=== PATIENT | male | born 1960 | race Caucasian/White ===

== ENCOUNTER 2020-05-19 12:44 | Emergency (ER) | payer OTHER ==
[~2020-05-19] VITALS: Ht 193 cm; Wt 184.1 kg
[2020-05-19] MEDS ORDERED: BACITO TOP (12:55)
[2020-05-19] MEDS ORDERED: Vitamin D2000 UNIT (12:56)
[2020-05-19] MEDS ORDERED: BUPR150ER PO (12:56)
[2020-05-19] MEDS ORDERED: DIVA500ER (12:56)
[2020-05-19] MEDS ORDERED: FINA5 PO (12:57)
[2020-05-19] MEDS ORDERED: Prozac20 MG PO (12:57)
[2020-05-19] MEDS ORDERED: FLUT.05NI (12:58)
[2020-05-19] MEDS ORDERED: BASAGLAR K100 UNIT/1 (12:58)
[2020-05-19] MEDS ORDERED: LISI20 PO (12:59)
[2020-05-19] MEDS ORDERED: HUMALOG JU100 UNIT/2 SQ (12:59)
[2020-05-19] MEDS ORDERED: MAGNESIUM OXID500 MG (12:59)
[2020-05-19 13:40] LABS: BASOPHILS ABSOLUTE AUTO 0.07 K/mm3 (0.00-0.23); BASOPHILS PERCENT AUTO 1 % (0-2); EOSINOPHILS ABSOLUTE AUTO 0.16 K/mm3 (0.00-0.68); EOSINOPHILS PERCENT AUTO 2 % (0-6); Hemoglobin 15.5 g/dL (13.5-17.5); IMMATURE GRAN ABSOLUTE AUTO 0.08 K/mm3 (0.00-0.10); IMMATURE GRAN PERCENT AUTO 1 % (0-1); LYMPHOCYTES ABSOLUTE AUTO 1.82 K/mm3 (0.84-5.20); LYMPHOCYTES PERCENT AUTO 22 % (21-46); MONOCYTES ABSOLUTE AUTO 0.78 K/mm3 (0.16-1.47); MONOCYTES PERCENT AUTO 10 % (4-13); Mean Corpuscular HGB 29.5 pg (26.0-34.0); Mean Corpuscular Volume 90 fL (80-100); Mean Platelet Volume 10.7 fL (9.1-12.4); NEUTROPHILS ABSOLUTE AUTO 5.32 K/mm3 (1.96-9.15); NEUTROPHILS PERCENT AUTO 65 % (41-73); Platelet Count 196 K/mm3 (150-400); RDW Coefficient Variation 12.8 % (11.7-14.2); RDW Standard Deviation 42.1 fL (35.1-46.3); Red Blood Cell Count 5.25 M/mm3 (4.30-5.90); White Blood Cell Count 8.23 K/mm3 (4.00-11.30)
[2020-05-19 14:21] LABS: Alanine Aminotransfer (ALT/SGP 30 U/L (12-78); Albumin, Blood 3.2 g/dL (3.4-5.0); Albumin/Globulin Ratio 0.7 (0.8-1.8); Alk Phos 71 U/L (50-136); Anion Gap 8 mmol/L (6-16); Aspartate Aminotrans (AST/SGOT 12 U/L (12-37); Bilirubin, Total 0.5 mg/dL (0.1-1.0); Blood Urea Nitrogen 17 mg/dL (8-24); Bun/Creatinine Ratio 18.6 (12.0-20.0); CO2, Blood 21 mmol/L (21-32); Calcium, Blood 8.4 mg/dL (8.5-10.1); Chloride, Blood 103 mmol/L (98-108); Creatinine, Blood 0.91 mg/dL (0.60-1.20); Globulin, Blood 4.4 g/dL (2.2-4.0); Glomerular Filtration Rate >60 (60-); Glucose, Blood 296 mg/dL (70-99); Potassium, Blood 3.8 mmol/L (3.5-5.5); Sodium, Blood 132 mmol/L (136-145); Total Protein, Blood 7.6 g/dL (6.4-8.2)
[2020-05-19] MEDS ORDERED: MINO50 PO (14:49)
== END 2020-05-19 15:30 | disposition home or self-care (01) ==
LOC: ER 12:44
PROVIDERS: Emergency Medicine
DX: L03.116 Cellulitis of left lower limb (principal); Z88.0 Allergy status to penicillin; Z88.8 Allergy status to other drugs, medicaments and biological substances; Z79.899 Other long term (current) drug therapy; E11.9 Type 2 diabetes mellitus without complications; Z79.4 Long term (current) use of insulin; Z23 Encounter for immunization
CPT/HCPCS: 80053; 85025; 87070; 87077; 87147; 87186; 87205; 90471; 90714; 93971; 99284-25

== ENCOUNTER 2020-08-09 22:28 | Observation (INO) | payer OTHER ==
[~2020-08-09] VITALS: Ht 193 cm; Wt 179.4 kg
[~2020-08-09 22:28] MED LIST: ACET325 PO; ALBU90OI INH; BACITO TOP; BASAGLAR K100 UNIT/1 SC; BUPR150ER PO; DIVA500ER; FINA5 PO; FLUT.05NI; HUMALOG JU100 UNIT/2 SC; LEVOFLOXACIN750 MG PO; LISI20 PO; MAGNESIUM OXID500 MG; METPHE10 PO; METPHE5 PO; MINO50 PO; Prozac20 MG PO; Vitamin D2000 UNIT
[2020-08-09 23:22] LABS: Source, Urine Clean Catch
[2020-08-09 23:28] LABS: Appearance, Urine Clear (Clear); Bilirubin, Urine Neg (Neg); Blood, Urine 3+ (Neg); Color, Urine Yellow (P-Yellow); Glucose Qualitative, Urine 4+ (Neg); Ketones, Urine 2+ (Neg); Leukocyte Esterase, Urine Neg (Neg); Nitrite, Urine Neg (Neg); Protein, Urine 2+ (Neg); Urobilinogen, Urine NORM (Normal)
[2020-08-09 23:37] LABS: Bacteria Rare /hpf; Squamous Epithelial Cells Rare /hpf (Few); White Blood Cells, Urine 0-2 /hpf (0-5)
[2020-08-09 23:57] LABS: BASOPHILS ABSOLUTE AUTO 0.08 K/mm3 (0.00-0.23); BASOPHILS PERCENT AUTO 1 % (0-2); EOSINOPHILS ABSOLUTE AUTO 0.15 K/mm3 (0.00-0.68); EOSINOPHILS PERCENT AUTO 2 % (0-6); Hematocrit 46.1 % (37.0-53.0); Hemoglobin 15.6 g/dL (13.5-17.5); IMMATURE GRAN ABSOLUTE AUTO 0.14 K/mm3 (0.00-0.10); IMMATURE GRAN PERCENT AUTO 1 % (0-1); LYMPHOCYTES ABSOLUTE AUTO 1.56 K/mm3 (0.84-5.20); LYMPHOCYTES PERCENT AUTO 16 % (21-46); MONOCYTES ABSOLUTE AUTO 0.69 K/mm3 (0.16-1.47); MONOCYTES PERCENT AUTO 7 % (4-13); Mean Corpuscular HGB 30.4 pg (26.0-34.0); Mean Corpuscular HGB Conc 33.8 g/dL (31.5-36.5); Mean Corpuscular Volume 90 fL (80-100); Mean Platelet Volume 10.2 fL (9.1-12.4); NEUTROPHILS ABSOLUTE AUTO 7.37 K/mm3 (1.96-9.15); NEUTROPHILS PERCENT AUTO 74 % (41-73); Platelet Count 235 K/mm3 (150-400); RDW Coefficient Variation 13.2 % (11.7-14.2); RDW Standard Deviation 44.2 fL (35.1-46.3); Red Blood Cell Count 5.14 M/mm3 (4.30-5.90); White Blood Cell Count 9.99 K/mm3 (4.00-11.30)
[2020-08-09 23:58] LABS: Base Excess Venous -2.3 mmol/L; PCO2 Venous 35.2 mmHg (38-42); PO2 Venous 121 mmHg (38-42); pH Blood Venous 7.41 (7.34-7.37)
[2020-08-10 00:28] LABS: Alanine Aminotransfer (ALT/SGP 29 U/L (12-78); Albumin, Blood 3.1 g/dL (3.4-5.0); Albumin/Globulin Ratio 0.7 (0.8-1.8); Alk Phos 80 U/L (50-136); Anion Gap 6 mmol/L (6-16); Aspartate Aminotrans (AST/SGOT 18 U/L (12-37); Beta-hydroxybutyrate 8.5 mg/dL (0.2-2.8); Bilirubin, Total 0.4 mg/dL (0.1-1.0); Blood Urea Nitrogen 13 mg/dL (8-24); Bun/Creatinine Ratio 15.7 (12.0-20.0); CO2, Blood 23 mmol/L (21-32); Calcium, Blood 8.8 mg/dL (8.5-10.1); Chloride, Blood 104 mmol/L (98-108); Creatinine, Blood 0.83 mg/dL (0.60-1.20); Globulin, Blood 4.5 g/dL (2.2-4.0); Glomerular Filtration Rate >60 (60-); Glucose, Blood 501 mg/dL (70-99); Potassium, Blood 4.7 mmol/L (3.5-5.5); Sodium, Blood 133 mmol/L (136-145); Total Protein, Blood 7.6 g/dL (6.4-8.2); Troponin I 0.106 ng/mL (0.000-0.040)
[2020-08-10 04:20] LABS: BASOPHILS ABSOLUTE AUTO 0.07 K/mm3 (0.00-0.23); BASOPHILS PERCENT AUTO 1 % (0-2); EOSINOPHILS PERCENT AUTO 1 % (0-6); Hematocrit 44.9 % (37.0-53.0); Hemoglobin 15.2 g/dL (13.5-17.5); IMMATURE GRAN ABSOLUTE AUTO 0.15 K/mm3 (0.00-0.10); IMMATURE GRAN PERCENT AUTO 2 % (0-1); LYMPHOCYTES ABSOLUTE AUTO 1.97 K/mm3 (0.84-5.20); LYMPHOCYTES PERCENT AUTO 21 % (21-46); MONOCYTES ABSOLUTE AUTO 0.79 K/mm3 (0.16-1.47); MONOCYTES PERCENT AUTO 8 % (4-13); Mean Corpuscular HGB 30.6 pg (26.0-34.0); Mean Corpuscular HGB Conc 33.9 g/dL (31.5-36.5); Mean Corpuscular Volume 90 fL (80-100); Mean Platelet Volume 10.1 fL (9.1-12.4); NEUTROPHILS ABSOLUTE AUTO 6.52 K/mm3 (1.96-9.15); NEUTROPHILS PERCENT AUTO 68 % (41-73); Platelet Count 233 K/mm3 (150-400); RDW Coefficient Variation 13.4 % (11.7-14.2); RDW Standard Deviation 44.8 fL (35.1-46.3); Red Blood Cell Count 4.97 M/mm3 (4.30-5.90)
[2020-08-10 04:53] LABS: Alanine Aminotransfer (ALT/SGP 23 U/L (12-78); Albumin, Blood 3.1 g/dL (3.4-5.0); Albumin/Globulin Ratio 0.7 (0.8-1.8); Alk Phos 71 U/L (50-136); Anion Gap 6 mmol/L (6-16); Aspartate Aminotrans (AST/SGOT 12 U/L (12-37); Bilirubin, Total 0.5 mg/dL (0.1-1.0); Blood Urea Nitrogen 13 mg/dL (8-24); Bun/Creatinine Ratio 16.6 (12.0-20.0); CO2, Blood 23 mmol/L (21-32); Calcium, Blood 8.6 mg/dL (8.5-10.1); Chloride, Blood 107 mmol/L (98-108); Creatinine, Blood 0.79 mg/dL (0.60-1.20); Globulin, Blood 4.4 g/dL (2.2-4.0); Glomerular Filtration Rate >60 (60-); Glucose, Blood 345 mg/dL (70-99); Sodium, Blood 136 mmol/L (136-145); Total Protein, Blood 7.5 g/dL (6.4-8.2)
--- NOTE | 2020-08-10 05:43 | NUR ---
SUMMARY PT ARRIVED TO PCU AT 0309. HE TRANSFERS INDEPENDENTLY TO THE BED AND TO THE BATHROOM. NO COMPLAINTS OF CP OR ANY OTHER PAIN, AND STATES HE HAS NO LOSS OF SENSATIION IN HIS LEGS ANYMORE. IN TO SEE PATIENT. HE IS ON 3L 02 AND MAINTIAING SATS IN THE MID 90s. PT TO RECIEVE CPAP. PATIENT HAS CALL LIGHT IN REACH AND BED IN LOW POSITION.
--- NOTE | 2020-08-10 08:40 | NUR ---
DR. JOE AT BEDSIDE. DISCUSSED POC. PLAN IS FOR HEART CATH TODAY. NPO. SHE WILL PUT IN ORDERS FOR HEPARIN. HOLD LOVENOX. STATES OK TO GIVE LOPRESSOR ORDERED.
--- NOTE | 2020-08-10 08:50 | NUR ---
PATIENT DOWN TO IMAGING.
[2020-08-10 09:14] LABS: Troponin I 0.161 ng/mL (0.000-0.040)
[2020-08-10 09:21] LABS: CHOL/HDL RATIO 5.7; Cholesterol 223 mg/dL (50-200); HDL Cholesterol 39 mg/dL (>39); LDL/HDL RATIO 4.1; Low Density Lipoprotein Chol 159 mg/dL (0-110); Triglycerides 124 mg/dL (30-160); Very Low Density Lipoprot Chol 24 mg/dL (6-32)
[2020-08-10 10:07] LABS: U Amphetamine Screen Not Detected; U Barbituate Screen Not Detected; U Benzodiazapine Screen Not Detected; U Buprenorphine Screen Not Detected; U Cannabinoids Screen Not Detected; U Cocaine Screen Not Detected; U Methadone Screen Not Detected; U Methamphetamine Screen Not Detected; U Opiates Screen Not Detected; U Oxycodone Screen Not Detected; U Phencyclidine Screen Not Detected; U Propoxyphene Screen Not Detected
[2020-08-10 10:08] LABS: International Normalized Ratio 0.99; Prothrombin Time Results 10.6 Sec (9.7-11.5)
--- NOTE | 2020-08-10 10:44 | NUR ---
Echocardiogram completed.
--- NOTE | 2020-08-10 11:04 | NUR ---
PATIENT DOWN TO STRIKE OFF MACHINE OPERATOR.
--- NOTE | 2020-08-10 12:31 | NUR ---
Call from Denisa Euceda, that pt's procedure incompleted due to STEMI in ED. Returning from medical lab scientist at this time, keep NPO and left radial access will be attempted later as right radial access unsuccessful this morning, per verbal report.
--- NOTE | 2020-08-10 12:44 | NUR ---
PATIENT RETURNED TO ROOM FROM PULVERIZER TENDER. THEY WERE UNABLE TO COMPLETE PROCEDURE AT THIS TIME. WILL RETURN TO FINISH PROCEDURE. PATIENT WILL CONTINUE TO BE NPO. BONIFACIO OCHOA RN RECEIVED ORDERS FROM DR. SAMANO TO CHECK PTT AND THEN HE WILL DECIDE WHETHER OR NOT TO CONTINUE WITH HEPARIN DRIP. TR BAND TO R WRIST WITH ARMBOARD IN PLACE. PATIENT DENIES NUMBNESS, TINGLING, AND PAIN TO SITE. PULSE 2+. GOOD PLETH. NO BRUISING OR SWELLING NOTED. WILL CONTINUE TO MONITOR.
--- NOTE | 2020-08-10 13:50 | NUR ---
CALLED ANNE IN PHARMACY. NOTIFIED HIM PATIENT HAD BEEN OFF HEPARIN DRIP FOR HEART CATH BUT THEY WERE UNABLE TO COMPLETE CATH. PATIENT'S APTT DRAWN AT 1253 WAS 47.7. ANNE STATED TO RESTART HEPARIN DRIP AT 13 U/KG/HR OR 32.2 ML/HR, NO NEED FOR BOLUS AT THIS TIME.
--- NOTE | 2020-08-10 15:15 | NUR ---
TR band fully deflated at this time. Right radial arterial access site without bleeding, bruising, swelling, nor evidence of hematoma. Distal pulse palpable, and fingers are pink, warm, with brisk cap refill. Pt denies any discomfort of right hand or arm, dyspnea, nor chest discomfort.
[2020-08-10 15:35] LABS: Troponin I 0.132 ng/mL (0.000-0.040)
--- NOTE | 2020-08-10 15:45 | NUR ---
AT 1527 PATIENT HAD A 7 BEAT RUN OF VTACH. WAS ASYMPTOMATIC, DENIED CHEST PAIN. CALLED DR. ALEGRIA TO NOTIFY HER. ALSO NOTIFIED HER OF PATIENT'S ELEVATED BP. STATES SHE WOULD PUT IN ORDERS FOR METOPROLOL TARTRATE 50 MG PO X1 NOW AND THEN WOULD INCREASE HIS SCHEDULED DOSE TO 50 MG. STATES PATIENT MAY GO TO [facility] TODAY BUT MAYBE GO TOMORROW, CONTINUE HEPARIN DRIP AND NPO FOR NOW.
--- NOTE | 2020-08-10 16:41 | NUR ---
TR band was removed, area cleansed with chlorohexidine, dried with gauze, and sterile clear tegederm applied to the area. Remains unchanged from previous assessment. Pt states he is very hungry as he hasn't eaten since yesterday evening. Called heart center to find out if and when the pt might go for the angiogram today.
--- NOTE | 2020-08-10 17:20 | NUR ---
PATIENT DOWN TO HEART CENTER.
--- NOTE | 2020-08-10 17:29 | NUR ---
Abhishek from [employer] here to take pt for angiogram. Pt walked to bathroom to void, then to bed for transport. Right radial site remains clear, white immobilizer board in place, before and after pt's use of bathroom.
--- NOTE | 2020-08-10 18:21 | NUR ---
SHIFT SUMMARY: PATIENT A/OX3. HAS DENIED PAIN THROUGHOUT THE SHIFT. ON ROOM AIR. CPAP SET UP FOR SLEEP. TELE SHOWS SINUS TACH. HAD 7 BEAT RUN OF VTACH, DENIED CHEST PAIN AND SOB. ELEVATED BP. ONE TIME DOSE OF LOPRESSOR GIVEN. DOWN TO HEART CENTER AND THEN THEY HAD TO STOP THE PROCEDURE. TR BAND REMOVED WITH NO S/S BLEEDING. NPO THROUGHOUT DAY PENDING ANOTHER PROCEDURE. DOWN TO HEART CENTER AGAIN AT THIS TIME. WILL CONTINUE TO MONITOR AND REPORT TO ONCOMING RN.
--- NOTE | 2020-08-10 18:45 | NUR ---
PATIENT TO ROOM FROM HEART CENTER. DENIES PAIN. ARMBOARD IN PLACE TO R WRIST AND L WRIST. TR BAND IN PLACE TO L WRIST WITH 12 CCS IN BAND PER REPORT. PATIENT DENIES PAIN, NUMBNESS, AND TINGLING AT SITE. GOOD CAP REFILL 2+. STRONG PULSE. PATIENT VERBALIZED UNDERSTANDING OF ARM RESTRICTIONS. FOOD GIVEN TO PATIENT. BP TAKEN ON PATIENT'S R LEG. CALL LIGHT IN REACH.
--- NOTE | 2020-08-11 01:02 | NUR ---
SUMMARY PT WENT FOR ANGIOGRAPHY EARLIER ON 08/10/20, HE HAD A RIGHT AND A LEFT RADIAL ACCESS SITE BECAUSE THE RIGHT DID NOT WORK, SO THEY ACCESSED THE LEFT RADIAL SITE. THE TR BAND WAS ALREADY REMOVED ON THE RIGHT RADIAL, BANDAGE STAYED INTACT AND NO BLEEDING PRESENT. THE LEFT RADIAL SITE HAD TR BAND IN PLACE WITH 12 CC OF AIR. STARTED REMOVING AIR AT 08/10, AND FINISHED REMOVING AIR AT 2345. NO BLEEDING PRESENT AND TR BAND LEFT IN PLACE FOR PATIENTS TRANSPORT TO [facility]. PT LEFT WITH BOTH WRIST SPLINTS IN PLACE ON HIS RIGHT AND LEFT WRIST. PT WAS FRUSTRATED DUE TO THE EVENTS OF THE DAY AND LACK OF SLEEP AND REFUSED HIS BLOOD PRESSURE BEING TAKEN BECAUSE IT WAS PAINFUL ON HIS RIGHT LEG. WE SWITCHED FROM THE MACHINE TO A MANUAL BLOOD PRESSURE AFTER TALKING TO THE PATIENT AND HE REPOTED MANUAL BP WAS LESS PAINFUL AND HE COULD TOLERATE IT. HE GOT UP TO USE THE RESTROOM UNSUPERVISED AT ONE POINT FORGETTING ABOUT THE IV IN HIS LEFT ARM THAT WAS INFUSING HEPARIN AND PULLED THE IV OUT. NEW IV PLACED IN HIS RIGHT WRIST BY BLANE HCRISTIE RN. PT WORE CPAP WHEN SLEEPING, VSS, NO COMPLAINTS OF CP. PT LEFT AROUND 0000 FOR [facility] AND REPORT WAS CALLED TO NISREEN THOMSON.
== END 2020-08-11 | disposition short-term general hospital (02) ==
LOC: ER 22:28 → PCU 22:30 → ER 08-10 01:40 → PCU 08-10 01:40
PROVIDERS: Internal Medicine Cardiovascular Disease; Pharmacist; Physician Assistant; ADMIT Internal Medicine
DX: I21.4 Non-ST elevation (NSTEMI) myocardial infarction (principal); I25.10 Atherosclerotic heart disease of native coronary artery without angina pectoris; T82.855A Stenosis of coronary artery stent, initial encounter; Y83.1 Surgical operation with implant of artificial internal device as the cause of abnormal reaction of the patient, or of later complication, without mention of misadventure at the time of the procedure; I51.3 Intracardiac thrombosis, not elsewhere classified; E78.00 Pure hypercholesterolemia, unspecified; E78.5 Hyperlipidemia, unspecified; E66.01 Morbid (severe) obesity due to excess calories; G47.33 Obstructive sleep apnea (adult) (pediatric); E86.0 Dehydration; E11.65 Type 2 diabetes mellitus with hyperglycemia; Z20.828 Contact with and (suspected) exposure to other viral communicable diseases; Z88.1 Allergy status to other antibiotic agents; Z87.891 Personal history of nicotine dependence; Z79.4 Long term (current) use of insulin; Z79.899 Other long term (current) drug therapy; Z88.0 Allergy status to penicillin; Z86.73 Personal history of transient ischemic attack (TIA), and cerebral infarction without residual deficits; J18.9 Pneumonia, unspecified organism; I11.9 Hypertensive heart disease without heart failure; Z68.42 Body mass index [BMI] 45.0-49.9, adult
CPT/HCPCS: 36415; 70450; 71046; 71260; 76937; 80053; 80061; 81001; 82010; 82550; 82803; 82947; 83605; 83880; 84484; 85025; 85347; 85610; 85730; 93005; 93010; 93454; 94660; 94762; 96374; 96376; 99152; 99153; 99285-25; A9270-GY; C1769; C1894; C8929; G0378; J1644; J1815; J2250; J3010; J7030; J7040; J7050; Q9957; Q9967; U0003

== ENCOUNTER 2020-09-30 06:58 | Emergency (ER) | payer OTHER ==
[~2020-09-30] VITALS: Ht 193 cm; Wt 172.4 kg
== END 2020-09-30 10:49 | disposition home or self-care (01) ==
LOC: ER 06:58
DX: F41.9 Anxiety disorder, unspecified (principal); Z88.0 Allergy status to penicillin; Z88.1 Allergy status to other antibiotic agents; Z79.899 Other long term (current) drug therapy
CPT/HCPCS: 99285

== ENCOUNTER 2020-11-22 00:41 | Inpatient (IN) | payer OTHER ==
[~2020-11-22] VITALS: Ht 193 cm; Wt 162.9 kg
[~2020-11-22 00:41] MED LIST changes: -DIVA500ER; +DIVA500ER PO
[2020-11-22 01:10] LABS: BASOPHILS ABSOLUTE AUTO 0.06 K/mm3 (0.00-0.23); BASOPHILS PERCENT AUTO 1 % (0-2); EOSINOPHILS ABSOLUTE AUTO 0.06 K/mm3 (0.00-0.68); EOSINOPHILS PERCENT AUTO 1 % (0-6); Hematocrit 47.4 % (37.0-53.0); Hemoglobin 15.5 g/dL (13.5-17.5); IMMATURE GRAN ABSOLUTE AUTO 0.05 K/mm3 (0.00-0.10); IMMATURE GRAN PERCENT AUTO 0 % (0-1); LYMPHOCYTES ABSOLUTE AUTO 1.45 K/mm3 (0.84-5.20); LYMPHOCYTES PERCENT AUTO 12 % (21-46); MONOCYTES ABSOLUTE AUTO 0.68 K/mm3 (0.16-1.47); MONOCYTES PERCENT AUTO 6 % (4-13); Mean Corpuscular HGB 28.9 pg (26.0-34.0); Mean Corpuscular HGB Conc 32.7 g/dL (31.5-36.5); Mean Corpuscular Volume 88 fL (80-100); Mean Platelet Volume 10.7 fL (9.1-12.4); NEUTROPHILS ABSOLUTE AUTO 9.81 K/mm3 (1.96-9.15); NEUTROPHILS PERCENT AUTO 81 % (41-73); Platelet Count 256 K/mm3 (150-400); RDW Coefficient Variation 12.7 % (11.7-14.2); RDW Standard Deviation 41.3 fL (35.1-46.3); Red Blood Cell Count 5.36 M/mm3 (4.30-5.90); White Blood Cell Count 12.11 K/mm3 (4.00-11.30)
[2020-11-22 01:20] LABS: Calcium, Ionized (POC) 1.09 mmol/L (1.10-1.46); Chloride (POC) 104 mmol/L (98-108); Creatinine (POC) 0.8 mg/dL (0.8-1.3); Glucose (ISTAT POC) 194 mg/dL (70-99); Potassium (POC) 5.5 mmol/L (3.5-5.5); Sodium (POC) 136 mmol/L (135-148); Total CO2 (POC) 24 mmol/L (21-32)
[2020-11-22 01:26] LABS: Troponin I 0.044 ng/mL (0.000-0.040)
[2020-11-22 01:28] LABS: International Normalized Ratio 1.01; Prothrombin Time Results 10.8 Sec (9.7-11.5)
[2020-11-22 01:30] LABS: Alanine Aminotransfer (ALT/SGP 23 U/L (12-78); Albumin, Blood 3.6 g/dL (3.4-5.0); Albumin/Globulin Ratio 0.8 (0.8-1.8); Alk Phos 80 U/L (50-136); Anion Gap 8 mmol/L (6-16); Aspartate Aminotrans (AST/SGOT 41 U/L (12-37); Bilirubin, Total 0.5 mg/dL (0.1-1.0); Blood Urea Nitrogen 16 mg/dL (8-24); Bun/Creatinine Ratio 19.4 (12.0-20.0); CO2, Blood 23 mmol/L (21-32); Chloride, Blood 105 mmol/L (98-108); Creatinine, Blood 0.82 mg/dL (0.60-1.20); Globulin, Blood 4.8 g/dL (2.2-4.0); Glomerular Filtration Rate >60 (60-); Glucose, Blood 188 mg/dL (70-99); Potassium, Blood 5.1 mmol/L (3.5-5.5); Sodium, Blood 136 mmol/L (136-145); Total Protein, Blood 8.4 g/dL (6.4-8.2)
[2020-11-22 06:12] LABS: LDL/HDL RATIO 3.8; Very Low Density Lipoprot Chol 24 mg/dL (6-32)
[2020-11-22 06:15] LABS: CHOL/HDL RATIO 5.4; Cholesterol 226 mg/dL (50-200); HDL Cholesterol 42 mg/dL (>39); Low Density Lipoprotein Chol 160 mg/dL (0-110); Triglycerides 121 mg/dL (30-160)
--- NOTE | 2020-11-22 07:25 | NUR ---
ADMIT NOTE PATIENT PLEASENT AND COOPERATIVE UPON ADMIT FROM THE ER. PATIENT TRANSFERED SELF OVER WITH SBA. PATIENT DENIES ANY CHEST/ABD PAIN. RESPIRATIONS EVEN AND UNLABORED. PATIENT CURRENTLY RESTING IN BED, NO DISTRESS NOTED AT THIS TIME. DAY SHIFT RN'S IN ROOM UPON PATIENT ARRIVAL. REPORT GIVEN TO DAY SHIFT RN'S.
--- NOTE | 2020-11-22 08:21 | NUR ---
ECHO IN PROGRESS
--- NOTE | 2020-11-22 09:18 | NUR ---
DR LLANES CALLED TO CLARIFY NEW ORDERS TO START THIS AM, NEW ORDERS TO START DIET AND FEED PT. WILL CONTINUE TO MONITOR.
--- NOTE | 2020-11-22 11:01 | NUR ---
UPDATE: PT HAS REDDENED AREA/RASH UNDER LEFT BREAST, CLEANED WITH SOAP AND WATER. DR. BAZAN NOTIFIED, NEW ORDERS PLACED. WILL CONTINUE TO MONITOR.
--- NOTE | 2020-11-22 12:15 | NUR ---
PT REPORTING FRQUENCY AND URGENCYTO VOID WITH MINIMAL OUTPUT, BLADDERSCAN AT 21cc; PT CONTINUE TO REPORT THE URGE TO VOID; PT BECOMES DIAPHORETIC, COOL AND CLAMMY; NOTIFIED DR BAZAN, DR MARINO WELSH.
[2020-11-22 13:07] LABS: Bilirubin, Urine Neg (Neg); Blood, Urine 2+ (Neg); Glucose Qualitative, Urine 3+ (Neg); Ketones, Urine 1+ (Neg); Leukocyte Esterase, Urine Neg (Neg); Nitrite, Urine Neg (Neg); Protein, Urine 2+ (Neg); Specific Gravity, Urine 1.015 (1.003-1.022); Urobilinogen, Urine NORM (Normal)
[2020-11-22 14:08] LABS: Appearance, Urine Hazy (Clear); Color, Urine Yellow (P-Yellow)
[2020-11-22 14:11] LABS: Bacteria Few /hpf; Hyaline Casts 0-2 /lpf (0-2); Squamous Epithelial Cells Rare /hpf (Few); White Blood Cells, Urine 0-2 /hpf (0-5)
--- NOTE | 2020-11-22 18:23 | NUR ---
SHIFT SUMMARY: PATIENT IS ALERT AND ORIENTED X4. ON ROOM AIR. TELE SHOWING SINUS RHYTHM/SINUS TACH. HR AVERAGING 90'S. DENIES CHEST PAIN/PRESSURE. R UPPER ARM IV INFUSING HEPARIN. UP TO BEDSIDE COMMODE WITH 1 PERSON. PT COMPLAINING OF THE NEED TO URINATE CONSTANTLY. RECIEVED DEMADEX THIS AM AND HAS HAD GOOD OUTPUT. VITAL SIGNS STABLE WITH SOME ELVATED BLOOD PRESSURES. DR. LLANES IN TO SEE PATIENT THIS AM TO DISCUSS MED CHANGES, COMPLIANCE WITH MEDS AND THE NEED TO CONTROL BLOOD PRESSURE. WILL CONTINUE TO MONITOR AND REPORT OFF.
--- NOTE | 2020-11-22 18:54 | NUR ---
RECEIV[facility] MEDICATION L[facility]; UPDATED HOME MEDICATIONS. NOTIFIED DR BAZAN OF HOME MEDICATIONS; NEW ORDERS FOR UPDATED HOME MEDICATIONS.
[2020-11-23 04:00] LABS: BASOPHILS PERCENT AUTO 1 % (0-2); EOSINOPHILS ABSOLUTE AUTO 0.12 K/mm3 (0.00-0.68); EOSINOPHILS PERCENT AUTO 1 % (0-6); Hematocrit 47.8 % (37.0-53.0); Hemoglobin 15.7 g/dL (13.5-17.5); IMMATURE GRAN ABSOLUTE AUTO 0.04 K/mm3 (0.00-0.10); IMMATURE GRAN PERCENT AUTO 0 % (0-1); LYMPHOCYTES PERCENT AUTO 31 % (21-46); MONOCYTES ABSOLUTE AUTO 1.26 K/mm3 (0.16-1.47); MONOCYTES PERCENT AUTO 11 % (4-13); Mean Corpuscular HGB 29.6 pg (26.0-34.0); Mean Corpuscular HGB Conc 32.8 g/dL (31.5-36.5); Mean Corpuscular Volume 90 fL (80-100); Mean Platelet Volume 10.4 fL (9.1-12.4); NEUTROPHILS ABSOLUTE AUTO 6.56 K/mm3 (1.96-9.15); NEUTROPHILS PERCENT AUTO 56 % (41-73); Platelet Count 259 K/mm3 (150-400); RDW Coefficient Variation 13.1 % (11.7-14.2); RDW Standard Deviation 42.7 fL (35.1-46.3); Red Blood Cell Count 5.31 M/mm3 (4.30-5.90); White Blood Cell Count 11.78 K/mm3 (4.00-11.30)
[2020-11-23 04:20] LABS: Alanine Aminotransfer (ALT/SGP 21 U/L (12-78); Albumin, Blood 3.7 g/dL (3.4-5.0); Albumin/Globulin Ratio 0.8 (0.8-1.8); Alk Phos 74 U/L (50-136); Anion Gap 11 mmol/L (6-16); Aspartate Aminotrans (AST/SGOT 18 U/L (12-37); Bilirubin, Total 0.5 mg/dL (0.1-1.0); Blood Urea Nitrogen 21 mg/dL (8-24); Bun/Creatinine Ratio 19.8 (12.0-20.0); CO2, Blood 23 mmol/L (21-32); Calcium, Blood 9.4 mg/dL (8.5-10.1); Chloride, Blood 102 mmol/L (98-108); Creatinine, Blood 1.06 mg/dL (0.60-1.20); Globulin, Blood 4.4 g/dL (2.2-4.0); Glomerular Filtration Rate >60 (60-); Glucose, Blood 188 mg/dL (70-99); Potassium, Blood 3.4 mmol/L (3.5-5.5); Sodium, Blood 136 mmol/L (136-145); Total Protein, Blood 8.1 g/dL (6.4-8.2)
--- NOTE | 2020-11-23 05:51 | NUR ---
SHIFT SUMMARY PT A&O X 4; ABLE TO MAKE NEEDS KNOWN; VSS; DENIES CHEST PAIN; O2 SATS >93 ON RA; USES CPAP @ NOC; EKG THIS AM, STRIP PLACED IN CHART; NO DISTRESS NOTED THIS SHIFT; PT CURRENTLY SLEEPING; CALL LIGHT IN REACH; BED IN LOWEST POSITION; WILL CONTINUE TO MONITOR CLOSELY UNTIL HAND OFF TO DAY SHIFT RN.
[2020-11-23] MEDS ORDERED: LISI5 PO (12:58)
[2020-11-23] MEDS ORDERED: ACET325 PO (12:59)
[2020-11-23] MEDS ORDERED: ASPI81CH PO (13:00)
[2020-11-23] MEDS ORDERED: LIPITOR80 MG PO (13:00)
[2020-11-23] MEDS ORDERED: CLOP75 PO (13:01)
[2020-11-23] MEDS ORDERED: Colace100 MG PO (13:01)
[2020-11-23] MEDS ORDERED: TORSE20 PO (13:02)
[2020-11-23] MEDS ORDERED: METO50ER PO (13:02)
[2020-11-23] MEDS ORDERED: ANTIFUNGAL POWD71 GM TOP (13:04)
--- NOTE | 2020-11-23 13:13 | NUR ---
Advance Directive(AD) education conducted. Upon receiving an admit referral for AD education, I visit patient. I explain the imporatance and purpose of the AD and then go through the sections the filing process. Patient demonstrates clear comprehension and states that he will fill it out at home.
--- NOTE | 2020-11-23 17:01 | NUR ---
DISCHARGE SUMMARY PT A&Ox4; CALM AND COOPERATIVE WITH CARE. PT RESTING IN BED. UP TO BSC WITH SBA. PT DENIES PAIN, CHEST PAIN, SOB, NAUSEA AND DIZZINESS. BP TRENDING DOWN, NOTIIFED DR BAZAN, NEW MEDICATIONS CHANGESD FOR HOME. OTHER VSS. PT EDUCATED ON DISCHARGE INSTRUCTIONS, FOLLOW UP APPOINTMENT AND NEW MEDICATION. LEVI MAKER INTO ROOM TO EDUCATE PT ON NEW HOME MEDICATIONS. PRESCRIPT[facility] TO [facility]. PT LEFT ROOM VIA WHEELCHAIR AT 1420. PT STABLE UPON DISCHARGE.
== END 2020-11-23 14:26 | disposition home or self-care (01) | DRG 281 ==
LOC: ER 00:41 → PCU 05:46
PROVIDERS: Emergency Medicine; Internal Medicine; ADMIT Internal Medicine
DX: I21.A1 Myocardial infarction type 2 (principal); E66.2 Morbid (severe) obesity with alveolar hypoventilation; I16.0 Hypertensive urgency; I10 Essential (primary) hypertension; E78.5 Hyperlipidemia, unspecified; I25.10 Atherosclerotic heart disease of native coronary artery without angina pectoris; E11.9 Type 2 diabetes mellitus without complications; I25.5 Ischemic cardiomyopathy; N40.0 Benign prostatic hyperplasia without lower urinary tract symptoms; E66.9 Obesity, unspecified; Z68.36 Body mass index [BMI] 36.0-36.9, adult; Z95.1 Presence of aortocoronary bypass graft; Z79.82 Long term (current) use of aspirin; I25.2 Old myocardial infarction
CPT/HCPCS: 36415; 71045; 80047; 80053; 80061; 81001; 82947; 83036; 83690; 84484; 85014; 85025; 85610; 85730; 93005; 93010; 94660; 94762; 96374; 96375; 99285-25; A9270; C8929; J1644; J2270; Q9957

== ENCOUNTER 2024-08-25 18:06 | Emergency (ER) | payer OTHER ==
[~2024-08-25] VITALS: Ht 193 cm; Wt 145.2 kg
[~2024-08-25 18:06] MED LIST changes: +ANTIFUNGAL POWD71 GM TOP; +ASPI81CH PO; +CLOP75 PO; +Colace100 MG PO; +LIPITOR80 MG PO; +LISI5 PO; +METO50ER PO; +TORSE20 PO
[2024-08-25] MEDS ORDERED: Lactated Ringer's 500 ML IV ONE ×2 (18:35→22:25)
[2024-08-25 19:31] LABS: Base Excess Venous -7.9 mmol/L; Bicarbonate Venous 18.7 mmol/L (24.0-30.0); PCO2 Venous 32.3 mmHg (38-42); pH Blood Venous 7.35 (7.34-7.37)
[2024-08-25 19:53] LABS: Albumin, Blood 3.5 g/dL (3.4-5.0); Albumin/Globulin Ratio 0.8 (0.8-1.8); Beta-hydroxybutyrate 1.5 mg/dL (0.2-2.8); Bilirubin, Total 0.5 mg/dL (0.1-1.0); Bun/Creatinine Ratio 24.3 (12.0-20.0); Calcium, Blood 8.9 mg/dL (8.5-10.1); Creatinine, Blood 1.85 mg/dL (0.60-1.20); Globulin, Blood 4.2 g/dL (2.2-4.0); Potassium, Blood 3.7 mmol/L (3.5-5.5); Total Protein, Blood 7.7 g/dL (6.4-8.2)
[2024-08-25 21:49] LABS: Influenza A, PCR NEGATIVE (NEGATIVE); Influenza B, PCR NEGATIVE (NEGATIVE); Resp Syncytial Virus, PCR NEGATIVE (NEGATIVE); SARS-Cov-2 (COVID-19) PCR, MMC NEGATIVE (NEGATIVE)
[2024-08-25] MEDS ORDERED: Lactated Ringer's 500 ML IV SCH (22:15)
[2024-08-25] MEDS ORDERED: Insulin Glargine-Yfgn 100 Unit/mL 3 ML SYR SC ONE (22:35)
[2024-08-25 23:30] VITALS: BP 172/102
[2024-08-25] MEDS ORDERED: METF500 PO (23:53)
== END 2024-08-25 23:35 ==
LOC: ER 18:06
PROVIDERS: Student in an Organized Health Care Education/Training Program
DX: E11.65 Type 2 diabetes mellitus with hyperglycemia (principal); N17.9 Acute kidney failure, unspecified; J44.9 Chronic obstructive pulmonary disease, unspecified; I10 Essential (primary) hypertension; G47.30 Sleep apnea, unspecified; I25.2 Old myocardial infarction; Z79.82 Long term (current) use of aspirin; Z79.899 Other long term (current) drug therapy; Z88.0 Allergy status to penicillin; Z88.1 Allergy status to other antibiotic agents
CPT/HCPCS: 0241U; 80053; 82010; 82803; 82947; 84484; 85379; 93005; 93010; 96360; 99285-25; J1815; J7120

== ENCOUNTER 2024-09-23 13:18 | Emergency (ER) | payer OTHER ==
[~2024-09-23] VITALS: Ht 193 cm; Wt 145.2 kg
[~2024-09-23 13:18] MED LIST changes: +METF500 PO
[2024-09-23] MEDS ORDERED: MethylPREDNISolone Sod Succ 125 MG Vial IV ONE (13:30)
[2024-09-23] MEDS ORDERED: Ipratropium/Albuterol SulF 2.5-0.5MG/3 ML Amp INH ONE (13:30)
[2024-09-23 14:13] LABS: BASOPHILS ABSOLUTE AUTO 0.05 K/mm3 (0.00-0.23); BASOPHILS PERCENT AUTO 1 % (0-2); EOSINOPHILS ABSOLUTE AUTO 0.17 K/mm3 (0.00-0.68); EOSINOPHILS PERCENT AUTO 2 % (0-6); Hematocrit 37.6 % (37.0-53.0); Hemoglobin 12.8 g/dL (13.5-17.5); IMMATURE GRAN ABSOLUTE AUTO 0.03 K/mm3 (0.00-0.10); IMMATURE GRAN PERCENT AUTO 0 % (0-1); LYMPHOCYTES ABSOLUTE AUTO 2.08 K/mm3 (0.84-5.20); LYMPHOCYTES PERCENT AUTO 22 % (21-46); MONOCYTES ABSOLUTE AUTO 0.67 K/mm3 (0.16-1.47); MONOCYTES PERCENT AUTO 7 % (4-13); Mean Corpuscular HGB 30.4 pg (26.0-34.0); Mean Corpuscular Volume 89 fL (80-100); Mean Platelet Volume 10.8 fL (9.1-12.4); NEUTROPHILS ABSOLUTE AUTO 6.37 K/mm3 (1.96-9.15); NEUTROPHILS PERCENT AUTO 68 % (41-73); Platelet Count 262 K/mm3 (150-400); RDW Coefficient Variation 13.2 % (11.7-14.2); RDW Standard Deviation 43.6 fL (35.1-46.3); Red Blood Cell Count 4.21 M/mm3 (4.30-5.90); White Blood Cell Count 9.37 K/mm3 (4.00-11.30)
[2024-09-23 14:37] LABS: Bun/Creatinine Ratio 27.7 (12.0-20.0); Creatinine, Blood 1.88 mg/dL (0.60-1.20); Potassium, Blood 3.9 mmol/L (3.5-5.5)
[2024-09-23 14:54] LABS: Influenza A, PCR NEGATIVE (NEGATIVE); Influenza B, PCR NEGATIVE (NEGATIVE); Resp Syncytial Virus, PCR NEGATIVE (NEGATIVE); SARS-Cov-2 (COVID-19) PCR, MMC NEGATIVE (NEGATIVE)
[2024-09-23 17:30] VITALS: BP 137/79
== END 2024-09-23 18:45 | disposition home or self-care (01) ==
LOC: ER 13:18
PROVIDERS: Emergency Medicine
DX: I11.0 Hypertensive heart disease with heart failure (principal); I50.9 Heart failure, unspecified; J44.9 Chronic obstructive pulmonary disease, unspecified; E11.9 Type 2 diabetes mellitus without complications; I25.2 Old myocardial infarction; F32.A Depression, unspecified; G47.30 Sleep apnea, unspecified; Z88.0 Allergy status to penicillin; Z88.1 Allergy status to other antibiotic agents; Z79.899 Other long term (current) drug therapy; Z79.82 Long term (current) use of aspirin; Z79.84 Long term (current) use of oral hypoglycemic drugs
CPT/HCPCS: 0241U; 71046; 71260; 80048; 83880; 84484; 85025; 85379; 93005; 93010; 94640; 94664; 96374-59; 99285-25; J2919; Q9967

== ENCOUNTER 2024-10-21 11:57 | Emergency (ER) | payer OTHER ==
[~2024-10-21] VITALS: Ht 193 cm; Wt 99.8 kg
[2024-10-21 12:03] VITALS: BP 110/72
== END 2024-10-21 12:45 | disposition home or self-care (01) ==
LOC: ER 11:57
DX: Z71.1 Person with feared health complaint in whom no diagnosis is made (principal); Z87.891 Personal history of nicotine dependence; Z79.82 Long term (current) use of aspirin; Z79.02 Long term (current) use of antithrombotics/antiplatelets; Z79.84 Long term (current) use of oral hypoglycemic drugs; Z79.899 Other long term (current) drug therapy; Z88.0 Allergy status to penicillin; Z88.1 Allergy status to other antibiotic agents; Z88.5 Allergy status to narcotic agent
CPT/HCPCS: 99283

== ENCOUNTER 2025-03-13 06:05 | Emergency (ER) | payer OTHER ==
[~2025-03-13] VITALS: Ht 193 cm; Wt 140.6 kg
[2025-03-13 07:13] VITALS: BP 133/66
== END 2025-03-13 07:14 | disposition home or self-care (01) ==
LOC: ER 06:05
DX: R20.2 Paresthesia of skin (principal); J95.850 Mechanical complication of respirator; I11.0 Hypertensive heart disease with heart failure; I50.9 Heart failure, unspecified; J44.9 Chronic obstructive pulmonary disease, unspecified; N40.0 Benign prostatic hyperplasia without lower urinary tract symptoms; E11.9 Type 2 diabetes mellitus without complications; G47.30 Sleep apnea, unspecified; I25.2 Old myocardial infarction; Z79.82 Long term (current) use of aspirin; Z79.01 Long term (current) use of anticoagulants; Z79.899 Other long term (current) drug therapy
CPT/HCPCS: 99284

== ENCOUNTER 2025-04-13 21:27 | Inpatient (IN) | payer OTHER ==
[~2025-04-13] VITALS: Ht 193 cm; Wt 143.1 kg
[2025-04-13 22:14] LABS: BASOPHILS ABSOLUTE AUTO 0.07 K/mm3 (0.00-0.23); BASOPHILS PERCENT AUTO 1 % (0-2); EOSINOPHILS ABSOLUTE AUTO 0.08 K/mm3 (0.00-0.68); EOSINOPHILS PERCENT AUTO 1 % (0-6); Hematocrit 42.4 % (37.0-53.0); Hemoglobin 14.4 g/dL (13.5-17.5); IMMATURE GRAN ABSOLUTE AUTO 0.04 K/mm3 (0.00-0.10); IMMATURE GRAN PERCENT AUTO 0 % (0-1); LYMPHOCYTES ABSOLUTE AUTO 1.57 K/mm3 (0.84-5.20); LYMPHOCYTES PERCENT AUTO 15 % (21-46); MONOCYTES ABSOLUTE AUTO 0.76 K/mm3 (0.16-1.47); MONOCYTES PERCENT AUTO 7 % (4-13); Mean Corpuscular HGB 29.6 pg (26.0-34.0); Mean Corpuscular Volume 87 fL (80-100); Mean Platelet Volume 10.5 fL (9.1-12.4); NEUTROPHILS ABSOLUTE AUTO 8.16 K/mm3 (1.96-9.15); NEUTROPHILS PERCENT AUTO 76 % (41-73); Platelet Count 231 K/mm3 (150-400); RDW Coefficient Variation 13.8 % (11.7-14.2); Red Blood Cell Count 4.87 M/mm3 (4.30-5.90); White Blood Cell Count 10.68 K/mm3 (4.00-11.30)
[2025-04-13 22:37] LABS: Magnesium, Blood 2.3 mg/dL (1.6-2.4)
[2025-04-13 22:46] LABS: Albumin/Globulin Ratio 1.1 (0.8-1.8); Bilirubin, Total 0.7 mg/dL (0.1-1.0); Bun/Creatinine Ratio 22.9 (12.0-20.0); Calcium, Blood 9.5 mg/dL (8.5-10.1); Creatinine, Blood 2.05 mg/dL (0.60-1.20); Globulin, Blood 3.7 g/dL (2.2-4.0); Phosphorus, Blood 3.5 mg/dL (2.5-4.9); Potassium, Blood 5.1 mmol/L (3.5-5.5); Total Protein, Blood 7.7 g/dL (6.4-8.2)
[2025-04-14] MEDS ORDERED: CefTRIAXone Sodium 2,000 MG in NS 50 ML IV ONE (00:55)
[2025-04-14] MEDS ORDERED: NS 1,000 ML IV SCH ×2 (00:55→04:40)
[2025-04-14] MEDS ORDERED: CLINDAMYCIN PHOSPHATE/D5W 50 ML IV SCH ×2 (03:00→12:00)
--- NOTE | 2025-04-14 03:45 | NUR ---
PT ADMITTED TO FLOOR FROM ER [facility]. SEVERAL STAFF ASSISTED TO MEDICAL FLOOR BED FROM ER [facility]. PT IS A&OX3. PT HAD A FALL, PRIOR TO ADMIT. PT LIVES IN A MOBILE HOME INDEPENDENTLY. PT USUALLY WALKS UNASSISTED AT HOME - OCCASIONAL FURNITURE USE WITH AMBULATION. SKIN - COCCYX IS RED - BLANCHABLE - NO OPEN AREAS. YEAST TO PANUS. PT HAS A SCAB TO HIS RIGHT 2ND TOE. DR. SMITH CAME IN TO SEE PT THIS AM - REVIEWED THAT PT TAKES JARDIANCE "GENERIC AT HOME." ORDERS RECEIVED FOR CBG AC/HS WITH COVERAGE - SEE ORDERS. CALL LIGHT WITHIN REACH. BED IN LOW POSITION. FLUIDS AT BEDSIDE.
[2025-04-14 03:48] VITALS: BP 160/92
[2025-04-14] MEDS ORDERED: FentaNYL Citrate 50 MCG/ML 2 ML Injection IV PRN (05:15)
--- NOTE | 2025-04-14 05:20 | NUR ---
HOSPITALIST CONTACT PT REPORTING 5/10 PAIN IN LEFT KNEE/THIGH AFTER FALL AT HOME. PT USUALLY TAKES IBUPROFEN FOR PAIN. CALL TO RIM TECHNICIAN. SPOKE TO DR. DHILLON. NEW ORDER FOR FENTANYL 25-50MCG Q4 PRN FOR PAIN.
[2025-04-14 06:11] LABS: BASOPHILS ABSOLUTE AUTO 0.06 K/mm3 (0.00-0.23); BASOPHILS PERCENT AUTO 1 % (0-2); EOSINOPHILS PERCENT AUTO 1 % (0-6); Hematocrit 39.2 % (37.0-53.0); Hemoglobin 13.2 g/dL (13.5-17.5); IMMATURE GRAN ABSOLUTE AUTO 0.05 K/mm3 (0.00-0.10); IMMATURE GRAN PERCENT AUTO 1 % (0-1); LYMPHOCYTES ABSOLUTE AUTO 2.47 K/mm3 (0.84-5.20); LYMPHOCYTES PERCENT AUTO 24 % (21-46); MONOCYTES ABSOLUTE AUTO 0.94 K/mm3 (0.16-1.47); MONOCYTES PERCENT AUTO 9 % (4-13); Mean Corpuscular HGB Conc 33.7 g/dL (31.5-36.5); Mean Corpuscular Volume 89 fL (80-100); Mean Platelet Volume 11.8 fL (9.1-12.4); NEUTROPHILS ABSOLUTE AUTO 6.53 K/mm3 (1.96-9.15); NEUTROPHILS PERCENT AUTO 64 % (41-73); Platelet Count 247 K/mm3 (150-400); RDW Coefficient Variation 13.8 % (11.7-14.2); RDW Standard Deviation 45.3 fL (35.1-46.3); White Blood Cell Count 10.15 K/mm3 (4.00-11.30)
[2025-04-14 06:35] LABS: Bun/Creatinine Ratio 24.6 (12.0-20.0); Calcium, Blood 8.9 mg/dL (8.5-10.1); Creatinine, Blood 1.79 mg/dL (0.60-1.20); Potassium, Blood 4.4 mmol/L (3.5-5.5)
[2025-04-14 07:17] VITALS: BP 144/83
[2025-04-14] MEDS ORDERED: Insulin Human Lispro 100 Units/ML 3ML Syringe SC SCH (07:30)
[2025-04-14] MEDS ORDERED: Enoxaparin 40 MG/0.4 ML SYR SC SCH (09:00)
[2025-04-14 13:54] LABS: Source, Urine Clean Catch
[2025-04-14 14:00] LABS: Appearance, Urine Clear (Clear); Bilirubin, Urine Neg (Neg); Blood, Urine Neg (Neg); Color, Urine Yellow (P-Yellow); Glucose Qualitative, Urine 4+ (Neg); Ketones, Urine Neg (Neg); Leukocyte Esterase, Urine Neg (Neg); Nitrite, Urine Neg (Neg); Protein, Urine 1+ (Neg); Specific Gravity, Urine 1.015 (1.003-1.022); Urobilinogen, Urine NORM (Normal)
[2025-04-14 15:10] VITALS: BP 133/71
--- NOTE | 2025-04-14 17:58 | NUR ---
SHIFT SUMMARY PATIENT ALERT AND INTERACTIVE. PATIENT REQEUSTED TO BE UNDISTURBED AFTER BEDSIDE REPORT FOR A REST PERIOD. PATIENT WORKDED WITH THERAPY SERVICES AND AMBULATED WITH WALKER IN ROOM. PATIENT STATES THAT HE LIVES ALONE AND IS A . PATIENT MEDICATED X1 FOR KNEE PAIN AFTER THERAPY. PATIENT NEEDING EDUCATION ON SKIN HYGIENE. POWDER ORDERED PER PROTOCOL FOR RASH IN SKIN FOLDS.
[2025-04-14 19:34] VITALS: BP 132/82
[2025-04-14] MEDS ORDERED: Melatonin 5 MG Tablet PO PRN (20:20)
[2025-04-14] MEDS ORDERED: Miconazole Nitrate 2% 85 GM PWD TOP SCH (21:00)
--- NOTE | 2025-04-14 23:59 | NUR ---
RT IN TO CHECK ON PATIENT SETTING FOR CPAP PER PATIENT REQUEST. WCTM.
--- NOTE | 2025-04-15 04:02 | NUR ---
SHIFT SUMMARY PATIENT HAD NO ACUTE CHANGES. ALERT ORIENTED AND ONE ASSIST W/FWW TO BR. DENIES CHEST PAIN, SOB, AND N/V. VSS/AFEBRILE. REPORTED BACK/LEG PAIN AND IV FENTANYL 25 MCG GIVEN PER EMAR. MELATONIN [address] GARCIA AND GIVEN FOR INSOMNIA. PIV INTACT. NS INFUSING @ 75 mL/HR. IV ABX INFUSED. CBG 135. CALL LIGHT IN REACH. BED IN LOWEST POSITION. WILL CONTINUE TO MONITOR UNTIL DAY SHIFT NURSE ASSUMES CARE.
[2025-04-15 05:31] VITALS: BP 168/94
[2025-04-15 06:22] LABS: Hematocrit 39.8 % (37.0-53.0); Hemoglobin 13.3 g/dL (13.5-17.5); Mean Corpuscular HGB Conc 33.4 g/dL (31.5-36.5); Mean Corpuscular Volume 90 fL (80-100); Mean Platelet Volume 10.7 fL (9.1-12.4); Platelet Count 189 K/mm3 (150-400); RDW Coefficient Variation 13.7 % (11.7-14.2); RDW Standard Deviation 44.7 fL (35.1-46.3); Red Blood Cell Count 4.44 M/mm3 (4.30-5.90)
[2025-04-15 06:44] LABS: Bun/Creatinine Ratio 24.2 (12.0-20.0); Calcium, Blood 8.7 mg/dL (8.5-10.1); Creatinine, Blood 1.65 mg/dL (0.60-1.20); Magnesium, Blood 2.3 mg/dL (1.6-2.4); Potassium, Blood 3.9 mmol/L (3.5-5.5)
[2025-04-15 07:16] VITALS: BP 179/95
--- NOTE | 2025-04-15 09:00 | NUR ---
pt laying in bed awake, is irritable, frustrated he had to wait a bit for nurse, was better by the time this nurse left, a/ox4, cooperative with care, follows commands well, reports pain, was medicated per emar, lungs are clear t/o, resp even and unlabored, no cough noted, hrr, on r/a, uses the cpap at hs, no bleed in, no edema noted, ppp+2, cap refill<3 sec, vs stable, afebrile, piv to lac site is clear and patent, infusing ns as ordered at 75mls/hr, btx4, abd flat soft nontender, voids without diff, b/l le are pink, he reports some improvement, also has yeast rash to panus fold, this was cleansed and fresh powder applied, lizette, states he needs assist to get oob, shen hernandez, call light in reach.
[2025-04-15] MEDS ORDERED: METO100 PO (10:28)
[2025-04-15] MEDS ORDERED: JARDIANCE25 MG PO (10:31)
[2025-04-15] MEDS ORDERED: WEGOVY0.25 MG/0. SC (10:32)
[2025-04-15] MEDS ORDERED: GLUCOSE4 GM PO (10:33)
[2025-04-15] MEDS ORDERED: METF500 PO (10:34)
[2025-04-15] MEDS ORDERED: EZET10 PO (10:35)
[2025-04-15] MEDS ORDERED: BASAGLAR K100 UNIT/3 SC (10:35)
[2025-04-15] MEDS ORDERED: TRAZ50 PO (10:36)
[2025-04-15] MEDS ORDERED: ABILIFY MYCITE15 M2 PO (10:36)
[2025-04-15] MEDS ORDERED: NOVOLOG FL100 UNIT/3 SC (10:37)
[2025-04-15] MEDS ORDERED: ACET500 PO (10:38)
[2025-04-15] MEDS ORDERED: FURO40 PO (10:38)
[2025-04-15] MEDS ORDERED: TAMS.4ER PO (10:39)
[2025-04-15] MEDS ORDERED: LISI20 PO (10:40)
[2025-04-15] MEDS ORDERED: Viagra100 MG PO (10:40)
[2025-04-15] MEDS ORDERED: OxyCODONE HCL 5 MG TAB PO PRN (11:00)
[2025-04-15] MEDS ORDERED: TraZODone HCl 50 MG Tab PO PRN (11:00)
[2025-04-15] MEDS ORDERED: Acetaminophen 325 MG TABLET PO PRN (11:00)
--- NOTE | 2025-04-15 14:01 | NUR ---
pt will be transfered to [facility] today for rehab, scheduled berry picker is 1430, piv removed intact, report given to Angelica at [facility]. call light in reach.
--- NOTE | 2025-04-15 14:43 | NUR ---
pt left via wheelchair with transport to [facility] with all belongings.
[2025-04-15 15:54] LABS: CORONAVIRUS COVID-19 AG Negative (NEGATIVE)
[2025-04-15] MEDS ORDERED: Metoprolol Succinate 50 MG TABCR PO SCH (18:00)
[2025-04-15] MEDS ORDERED: Metoprolol Succinate 25 MG TABCR PO SCH (18:00)
[2025-04-15] MEDS ORDERED: Atorvastatin 40 MG Tab PO SCH (21:00)
[2025-04-15] MEDS ORDERED: Lactobacil 2-S.Thermo-Bifido 1 1 Cap PO SCH (21:00)
[2025-04-16] MEDS ORDERED: Metoprolol Tartrate 50 MG Tab PO SCH ×2 (06:00→09:00)
[2025-04-16] MEDS ORDERED: ARIPiprazole 5 MG Tab PO SCH (09:00)
[2025-04-16] MEDS ORDERED: Ezetimibe 10 MG Tab PO SCH (09:00)
[2025-04-16] MEDS ORDERED: Furosemide 40 MG Tab PO SCH (09:00)
[2025-04-16] MEDS ORDERED: Clopidogrel Bisulfate 75 MG Tab PO SCH (09:00)
[2025-04-16] MEDS ORDERED: Lisinopril 20 MG Tab PO SCH (09:00)
[2025-04-16] MEDS ORDERED: Empagliflozin 25 MG TAB PO SCH (09:00)
[2025-04-16] MEDS ORDERED: Tamsulosin HCl 0.4 MG Cap PO SCH (09:00)
== END 2025-04-15 14:44 | DRG 603 ==
LOC: ER 21:27 → MEDS 21:28
PROVIDERS: Family Medicine; Hospitalist; Student in an Organized Health Care Education/Training Program; ADMIT Internal Medicine
PROC: 5A09357 Assistance with Respiratory Ventilation, Less than 24 Consecutive Hours, Continuous Positive Airway Pressure (ICD-10-PCS; principal; 2025-04-14)
DX: L03.116 Cellulitis of left lower limb (principal); N17.9 Acute kidney failure, unspecified; I11.0 Hypertensive heart disease with heart failure; I25.10 Atherosclerotic heart disease of native coronary artery without angina pectoris; I50.9 Heart failure, unspecified; E11.9 Type 2 diabetes mellitus without complications; G47.33 Obstructive sleep apnea (adult) (pediatric); R29.6 Repeated falls; J44.9 Chronic obstructive pulmonary disease, unspecified; F41.9 Anxiety disorder, unspecified; F32.A Depression, unspecified; I25.2 Old myocardial infarction; N40.0 Benign prostatic hyperplasia without lower urinary tract symptoms; Z87.01 Personal history of pneumonia (recurrent); Z95.1 Presence of aortocoronary bypass graft; Z79.02 Long term (current) use of antithrombotics/antiplatelets; Z79.82 Long term (current) use of aspirin; Z79.84 Long term (current) use of oral hypoglycemic drugs; Z79.899 Other long term (current) drug therapy; Z88.0 Allergy status to penicillin; Z88.1 Allergy status to other antibiotic agents; Z88.8 Allergy status to other drugs, medicaments and biological substances; W18.30XA Fall on same level, unspecified, initial encounter
CPT/HCPCS: 36415; 71046; 73562-LT; 80048; 80053; 82947; 83605; 83735; 83880; 84100; 84484; 85025; 85027; 87040; 87426-QW; 93005; 93010; 94660; 94762; 96365; 96367; 96372; 96375; 96376; 97162; 97165; 97530; 97535; 99285-25; A9270; G0378; J0696; J0736; J1650; J3010; J7030

== ENCOUNTER 2025-06-30 19:50 | Inpatient (IN) | payer OTHER ==
[~2025-06-30] VITALS: Ht 185.4 cm; Wt 133.4 kg
[~2025-06-30 19:50] MED LIST changes: +ABILIFY MYCITE15 M2 PO; +ACET500 PO; +BASAGLAR K100 UNIT/3 SC; +EZET10 PO; +FURO40 PO; +GLUCOSE4 GM PO; +JARDIANCE25 MG PO; +METO100 PO; +NOVOLOG FL100 UNIT/3 SC; +TAMS.4ER PO; +TRAZ50 PO; +Viagra100 MG PO; +WEGOVY0.25 MG/0. SC
[2025-06-30] MEDS ORDERED: NS 1,000 ML IV SCH (20:40)
[2025-06-30 20:51] LABS: BASOPHILS ABSOLUTE AUTO 0.04 K/mm3 (0.00-0.23); BASOPHILS PERCENT AUTO 0 % (0-2); EOSINOPHILS ABSOLUTE AUTO 0.00 K/mm3 (0.00-0.68); EOSINOPHILS PERCENT AUTO 0 % (0-6); Hematocrit 36.4 % (37.0-53.0); Hemoglobin 12.8 g/dL (13.5-17.5); IMMATURE GRAN ABSOLUTE AUTO 0.03 K/mm3 (0.00-0.10); IMMATURE GRAN PERCENT AUTO 0 % (0-1); LYMPHOCYTES ABSOLUTE AUTO 1.01 K/mm3 (0.84-5.20); LYMPHOCYTES PERCENT AUTO 10 % (21-46); MONOCYTES ABSOLUTE AUTO 0.70 K/mm3 (0.16-1.47); MONOCYTES PERCENT AUTO 7 % (4-13); Mean Corpuscular HGB Conc 35.2 g/dL (31.5-36.5); Mean Corpuscular Volume 87 fL (80-100); NEUTROPHILS ABSOLUTE AUTO 8.17 K/mm3 (1.96-9.15); NEUTROPHILS PERCENT AUTO 82 % (41-73); NRBC ABSOLUTE 0.00 K/mm3 (0.00-0.02); NRBC Auto 0.0 /100 WBC (0.0-0.2); Platelet Count 178 K/mm3 (150-400); RDW Coefficient Variation 13.6 % (11.7-14.2); RDW Standard Deviation 43.2 fL (35.1-46.3)
[2025-06-30 21:12] LABS: CORONAVIRUS COVID-19 AG Negative (NEGATIVE)
[2025-06-30 21:13] LABS: Magnesium, Blood 1.8 mg/dL (1.6-2.4)
[2025-06-30 21:26] LABS: Alanine Aminotransfer (ALT/SGP 16 U/L (12-78); Albumin, Blood 3.0 g/dL (3.4-5.0); Albumin/Globulin Ratio 0.9 (0.8-1.8); Anion Gap 12 mmol/L (3-11); Aspartate Aminotrans (AST/SGOT 12 U/L (12-37); Bilirubin, Total 0.9 mg/dL (0.1-1.0); Blood Urea Nitrogen 18 mg/dL (8-24); CO2, Blood 20 mmol/L (21-32); Calcium, Blood 8.3 mg/dL (8.5-10.1); Chloride, Blood 110 mmol/L (98-108); Creatinine, Blood 1.83 mg/dL (0.60-1.20); Ethanol (Alcohol), Blood, Med <3 mg/dL; Globulin, Blood 3.3 g/dL (2.2-4.0); Glucose, Blood 184 mg/dL (70-99); Potassium, Blood 2.8 mmol/L (3.5-5.5); Sodium, Blood 139 mmol/L (136-145); Total Protein, Blood 6.3 g/dL (6.4-8.2)
[2025-07-01] VITALS (18 sets, daily range): BP systolic 95–191; BP diastolic 54–138
[2025-07-01 02:19] LABS: Source, Urine Voided
[2025-07-01 02:33] LABS: Bilirubin, Urine Neg (Neg); Glucose Qualitative, Urine 4+ (Neg); Ketones, Urine 1+ (Neg); Leukocyte Esterase, Urine Neg (Neg); Protein, Urine 2+ (Neg); Specific Gravity, Urine 1.010 (1.003-1.022); Urobilinogen, Urine NORM (Normal)
[2025-07-01 02:46] LABS: Color, Urine Yellow (P-Yellow)
[2025-07-01 02:47] LABS: Red Blood Cells, Urine 0-2 /hpf (0-2); White Blood Cells, Urine 0-2 /hpf (0-5)
[2025-07-01 02:54] LABS: U Amphetamine Screen Not Detected; U Barbituate Screen Not Detected; U Benzodiazapine Screen Not Detected; U Buprenorphine Screen Not Detected; U Cannabinoids Screen Not Detected; U Cocaine Screen Not Detected; U Methadone Screen Not Detected; U Methamphetamine Screen Not Detected; U Opiates Screen Not Detected; U Oxycodone Screen Not Detected; U Phencyclidine Screen Not Detected
[2025-07-01] MEDS ORDERED: Potassium Chl 20MEQ/Water100ML 100 ML IV ONE ×2 (03:05→21:55)
[2025-07-01] MEDS ORDERED: Ondansetron HCl 2 MG / ML 2ML Vial IV PRN (04:00)
[2025-07-01 04:59] LABS: BASOPHILS ABSOLUTE AUTO 0.06 K/mm3 (0.00-0.23); BASOPHILS PERCENT AUTO 1 % (0-2); EOSINOPHILS ABSOLUTE AUTO 0.04 K/mm3 (0.00-0.68); EOSINOPHILS PERCENT AUTO 0 % (0-6); Hematocrit 36.6 % (37.0-53.0); Hemoglobin 12.6 g/dL (13.5-17.5); IMMATURE GRAN ABSOLUTE AUTO 0.05 K/mm3 (0.00-0.10); IMMATURE GRAN PERCENT AUTO 1 % (0-1); LYMPHOCYTES ABSOLUTE AUTO 1.90 K/mm3 (0.84-5.20); LYMPHOCYTES PERCENT AUTO 19 % (21-46); MONOCYTES ABSOLUTE AUTO 0.86 K/mm3 (0.16-1.47); MONOCYTES PERCENT AUTO 9 % (4-13); Mean Corpuscular HGB Conc 34.4 g/dL (31.5-36.5); Mean Corpuscular Volume 87 fL (80-100); NEUTROPHILS ABSOLUTE AUTO 7.20 K/mm3 (1.96-9.15); NEUTROPHILS PERCENT AUTO 71 % (41-73); NRBC ABSOLUTE 0.00 K/mm3 (0.00-0.02); NRBC Auto 0.0 /100 WBC (0.0-0.2); Platelet Count 163 K/mm3 (150-400); RDW Coefficient Variation 13.9 % (11.7-14.2); RDW Standard Deviation 43.7 fL (35.1-46.3)
[2025-07-01 05:18] LABS: Alanine Aminotransfer (ALT/SGP 16.0 U/L (12-78); Albumin, Blood 3.1 g/dL (3.4-5.0); Albumin/Globulin Ratio 0.9 (0.8-1.8); Anion Gap 10.0 mmol/L (3-11); Aspartate Aminotrans (AST/SGOT 24.0 U/L (12-37); Bilirubin, Total 1.1 mg/dL (0.1-1.0); Blood Urea Nitrogen 21.0 mg/dL (8-24); CO2, Blood 20.0 mmol/L (21-32); Calcium, Blood 8.0 mg/dL (8.5-10.1); Chloride, Blood 109.0 mmol/L (98-108); Creatinine, Blood 1.74 mg/dL (0.60-1.20); Globulin, Blood 3.4 g/dL (2.2-4.0); Glucose, Blood 119.0 mg/dL (70-99); Magnesium, Blood 1.9 mg/dL (1.6-2.4); Potassium, Blood 3.2 mmol/L (3.5-5.5); Sodium, Blood 136.0 mmol/L (136-145); Total Protein, Blood 6.5 g/dL (6.4-8.2)
[2025-07-01 12:39] LABS: Thyroid Stimulating Hormone 1.34 uIU/mL (0.360-4.800)
[2025-07-01] MEDS ORDERED: Dose Adjust by Pharmacy XX STA (17:24)
[2025-07-01] MEDS ORDERED: Heparin Sodium 5000 Units/ML 1ML MDV IV ONE (17:25)
[2025-07-01] MEDS ORDERED: Heparin Sodium,Porcine/0.5 NS 500 ML IV SCH (17:25)
[2025-07-01 17:45] LABS: Anti-Xa UFH, PHA Monitoring <0.10 IU/mL; Prothrombin Time Results 12.0 Sec (9.7-11.5)
--- NOTE | 2025-07-01 18:00 | NUR ---
PT TRANSFERED FROM [facility] TO PCU 09 THE PT IS A&OX4, RIGHT FACIAL DROOP AND TOUNGE DEVIATION NOTED. THE PT STATES THE FACIAL DROOP STARTED LAST YEAR AND THAT IT IS FROM HIS CPAP". THE ON TELE THE PT IS ST 100S-110S. BP STABLE. EKG COMPLETED ON ARRIVAL TO THE ROOM PER DR. FRITZ. DR. FRITZ NOTIFIED OF EKG RESULTS AND WILL COME TO SEE THE PT. HEPARIN GTT STARTED PER EMAR W/ 5,000UNIT BOLUS. THE PT IS ON RA W/ SP02 >93%. THE PT DENIES ANY SOB, CHEST PAIN, OR ANY DISCOMFORTS. AT THIS TIME NPO WHILE WAITING FOR DR. GRIMES TO ROUNG ON THE PT. THREE SIDE RAILS UP, BED ALARM ON, SEE NOTES FOR UPDATES.
--- NOTE | 2025-07-01 18:29 | NUR ---
PATIENT ARRIVED TO ROOM 331 VIA GURNEY FROM ER WITH SHOCK PADS IN PLACE. TRANSFERRED FROM GURNEY TO BED WITH SOME NOTED SOB WITH EXERTION. DENIED CP, PAIN OR DISCOMFORT. PUREWICK PLACED TO SUCTION. PATIENT WITH NO ORDER FOR TELE AND ORDER OBTAINED AND TELEMETRY PLACED. RHYTHM AT SINUS TACH AT 117. PATIENT GIVEN SNACK AND WATER PER REQUEST. CALL FROM YADIRA IN LAB WITH A CRITICAL LAB VALUE; TROPONIN 405. DR. JEAN-BAPTISTE CALLED AND ORDERS OBTAINED TO TRANSFER PATIENT TO PCU AND START PATIENT ON HEPARIN DRIP PER PHARMACY CONSULT. PATIENT TRANSFERRED TO PCU 7 AND REPORT GIVEN TO ALIX KWAN. ALL BELONGINGS AND CPAP BROUGHT TO ROOM WITH PATIENT.
[2025-07-01] MEDS ORDERED: Metoprolol Tartrate 1 MG/ML 5 ML VIAL IV ONE (20:05)
[2025-07-01 20:23] LABS: pH Blood Venous 7.43 (7.34-7.37)
[2025-07-01] MEDS ORDERED: LORazepam 2 MG/ML 1ML Injection IV PRN (20:30)
[2025-07-01 20:38] LABS: Hematocrit 39.8 % (37.0-53.0); Hemoglobin 13.4 g/dL (13.5-17.5); Mean Corpuscular HGB Conc 33.7 g/dL (31.5-36.5); Mean Corpuscular Volume 88 fL (80-100); NRBC ABSOLUTE 0.00 K/mm3 (0.00-0.02); NRBC Auto 0.0 /100 WBC (0.0-0.2); Platelet Count 159 K/mm3 (150-400); RDW Coefficient Variation 14.0 % (11.7-14.2); RDW Standard Deviation 44.8 fL (35.1-46.3)
[2025-07-01 21:09] LABS: Alanine Aminotransfer (ALT/SGP 22.0 U/L (12-78); Albumin, Blood 3.2 g/dL (3.4-5.0); Albumin/Globulin Ratio 0.9 (0.8-1.8); Anion Gap 16.0 mmol/L (3-11); Aspartate Aminotrans (AST/SGOT 47.0 U/L (12-37); Bilirubin, Total 1.6 mg/dL (0.1-1.0); Blood Urea Nitrogen 24.0 mg/dL (8-24); CO2, Blood 16.0 mmol/L (21-32); Calcium, Blood 8.5 mg/dL (8.5-10.1); Chloride, Blood 107.0 mmol/L (98-108); Creatinine, Blood 1.86 mg/dL (0.60-1.20); Globulin, Blood 3.7 g/dL (2.2-4.0); Glucose, Blood 166.0 mg/dL (70-99); Potassium, Blood 3.4 mmol/L (3.5-5.5); Sodium, Blood 136.0 mmol/L (136-145); Total Protein, Blood 6.9 g/dL (6.4-8.2)
--- NOTE | 2025-07-01 21:22 | NUR ---
PT STARTED TO TREND UP IN HR STARTING AT 1930. UPON ASSESSMENT OF PATIENT, REPORTED BEING VERY COLD, WAS VERY DRAMATICALLY SHAKING/SHIVERING, AND WAS DESATURATING TO 70s-80s ON ROOM AIR ALTHOUGH WITH INCONSISTENT PLETH. DENIED PAIN, DENIED COMPLAINTS OF ANY KIND OUTSIDE OF BEING COLD AND FEELING SHORT OF BREATH. BP HYPERTENSIVE. TACHYPNEIC WITH RATE IN THE 30s-40s. VP OF PRODUCT TO ROOM TO ASSESS. KOFI, DR. RODRIGUEZ, AND RESPIRATORY THERAPY TO ROOM SHORTLY THEREAFTER. EKG PERFORMED, REVIEWED BY KOFI. PT CONTINUED TO DENY PAIN OF ANY KIND BUT WAS NOTABLY MORE CONFUSED THAN THIS RN WAS LED TO BELIEVE BASED ON SHIFT REPORT. ABLE TO TELL ME HIS NAME/, THE YEAR, AND THE PRESIDENT BUT UNABLE TO ANSWER ANY OTHER ORIENTATION QUESTIONS APPROPRIATELY. LABS DRAWN PER KOFI. 5 MG IV LOPRESSOR AND 50 MG METOPROLOL ADMINISTERED PER KOFI. STAT HEAD CT W/O CONTRAST ORDERED AND COMPLETED, AWAITING RESULTS. SINCE THAT TIME, PT IS MORE RELAXED, HR HAS COME DOWN TO THE 130s, BLOOD PRESSURE IS DOWN TO 95/54 W/ MAP OF 66 MOST RECENTLY. DISCUSSION W/ PT. DENIES HAVING ANY FRIENDS OR FAMILY IN THE AREA THAT HE WOULD LIKE NOTIFIED OF CHANGE IN STATUS AND CONFRIMS THAT HE WOULD LIKE FULL CODE MEASURES TO BE TAKEN SHOULD NEED ARISE. BED LOCKED IN LOWEST POSITION. CALL LIGHT IN REACH.
[2025-07-01] MEDS ORDERED: CefTRIAXone Sodium 1,000 MG in NS 100 ML IV SCH (22:52)
[2025-07-01 23:48] LABS: Influenza A/2009-H1 Not Detected (NOT DETECT); SARS-Cov-2 (COVID-19), BioFire Not Detected (NOT DETECT)
[2025-07-02] VITALS (28 sets, daily range): BP systolic 70–156; BP diastolic 48–90
[2025-07-02] MEDS ORDERED: NS 250 ML IV ONE (01:10)
[2025-07-02] MEDS ORDERED: NS 1,000 ML IV SCH (01:15)
--- NOTE | 2025-07-02 01:31 | NUR ---
SPOKE W/ DR. DHILLON. PT BP LOW THIS MORNING, LOW OF 70/50 W/ MAP OF (58). PT REPORTS FEELING GOOD OUTSIDE OF BEING TIRED. SLEEPY BUT ROUSABLE. CONTINUES TO BE MILDLY TACHYCARDIC. CONTIUES TO BE TACHYPNEIC. EKG PERFORMED. DR. DHILLON ORDERED 250 ML NS BOLUS AND NS @ 75mls/HR X1 BAG. BOLUS RUNNING NOW.
--- NOTE | 2025-07-02 02:07 | NUR ---
SPOKE AGAIN W/DR. DHILLON. ORDERED ALBUMIN 25 MG IV OT NOW. ORDERED AMMONIA DRAW AND ORDERED ABD CT W/O CONTRAST. ORDERS INPUT.
[2025-07-02] MEDS ORDERED: Albumin (Human) 25gm/100ml 100 ML IV ONE (02:30)
--- NOTE | 2025-07-02 04:37 | NUR ---
SHIFT SUMMARY. PT IS RESTING COMFORTABLY IN BED AT THIS TIME. PT HAS HAD SOMEWHAT EVENTFUL SHIFT, SEE PREVIOUS NOTES FOR EXPANDED DETAILS. ON 2 L O2 VIA NC AT THIS TIME, MAINTAINING SATS >92%. RUNNING SINUS IN THE 90s AT THIS TIME. MOST RECENT BP 106/59 WITH MAP OF 74, FLUIDS CONTINUE TO INFUSE. HEPARIN RUNNING THROUGHOUT SHIFT. REMAINS SOMEWHAT TACHYPNEIC. DENIES FEELING ANY PAIN, REPORTS FEELING MUCH BETTER THAN EARLIER IN SHIFT. LESS SOMNOLENT, MORE ALERT, MORE CONSISTENT MENTATION. RESTING COMFORTABLY IN BED AT THIS TIME. BED LOCKED IN LOWEST POSITION. CALL LIGHT LEFT WITHIN REACH. CONTINUING TO MONITOR.
[2025-07-02] MEDS ORDERED: Dose Adjust by Pharmacy XX STA (06:49)
[2025-07-02] MEDS ORDERED: Insulin Glargine,Hum.Rec.Anlog 100 UNIT/ML 3MLSYR SC SCH ×2 (09:00→10:30)
[2025-07-02 09:37] LABS: Anion Gap 12.0 mmol/L (3-11); Blood Urea Nitrogen 26.0 mg/dL (8-24); CO2, Blood 18.0 mmol/L (21-32); Calcium, Blood 8.0 mg/dL (8.5-10.1); Chloride, Blood 112.0 mmol/L (98-108); Creatinine, Blood 1.82 mg/dL (0.60-1.20); Glucose, Blood 109.0 mg/dL (70-99); Potassium, Blood 3.2 mmol/L (3.5-5.5); Sodium, Blood 139.0 mmol/L (136-145)
--- NOTE | 2025-07-02 18:21 | NUR ---
SHIFT SUMMARY PATIENT IS ALERT AND ORIENTED X4, ABLE TO FOLLOW COMMANDS AND MAKE NEEDS KNOWN. PRESENCE OF RIGHT FACIAL DROOP AND ALTERED SENSATION IN RIGHT SIDED EXTREMITIES NOTED, CONSISTENT WITH PATIENT'S BASELINE. SLIGHTLY HYPERTENSIVE AND TACHYPNEIC, PATIENT DENIES PRESENCE OF CHEST PAIN, PRESSURE, OR SHORTNESS OF BREATH. PATIENT DENIES PRESENCE OF N/V/D. MONTERROSO CATHETER PLACED DUE TO URINARY RETENTION, CLEAR YELLOW URINE NOTED INITIALLY, BLOOD IN URINE NOTED TOWARDS END OF SHIFT, PROVIDER NOTIFIED. PATIENT HAS BEEN ABLE TO ASSIST WITH REPOSITIONING, HAS NOT AMBULATED DUE TO WEAKNESS. PATIENT IS LYING IN BED, BED IN LOWEST POSITION, CALL LIGHT WITHIN REACH.
[2025-07-02] MEDS ORDERED: NS 1,000 ML IR ONE (23:35)
[2025-07-03] VITALS (7 sets, daily range): BP systolic 111–159; BP diastolic 62–98
[2025-07-03 03:27] LABS: BASOPHILS ABSOLUTE AUTO 0.05 K/mm3 (0.00-0.23); BASOPHILS PERCENT AUTO 1 % (0-2); EOSINOPHILS ABSOLUTE AUTO 0.25 K/mm3 (0.00-0.68); EOSINOPHILS PERCENT AUTO 2 % (0-6); Hematocrit 36.2 % (37.0-53.0); Hemoglobin 12.6 g/dL (13.5-17.5); IMMATURE GRAN ABSOLUTE AUTO 0.03 K/mm3 (0.00-0.10); IMMATURE GRAN PERCENT AUTO 0 % (0-1); LYMPHOCYTES ABSOLUTE AUTO 1.15 K/mm3 (0.84-5.20); LYMPHOCYTES PERCENT AUTO 11 % (21-46); MONOCYTES ABSOLUTE AUTO 1.02 K/mm3 (0.16-1.47); MONOCYTES PERCENT AUTO 10 % (4-13); Mean Corpuscular HGB Conc 34.8 g/dL (31.5-36.5); Mean Corpuscular Volume 87 fL (80-100); NEUTROPHILS ABSOLUTE AUTO 7.80 K/mm3 (1.96-9.15); NEUTROPHILS PERCENT AUTO 76 % (41-73); NRBC ABSOLUTE 0.00 K/mm3 (0.00-0.02); NRBC Auto 0.0 /100 WBC (0.0-0.2); Platelet Count 143 K/mm3 (150-400); RDW Coefficient Variation 14.1 % (11.7-14.2); RDW Standard Deviation 44.4 fL (35.1-46.3)
[2025-07-03 03:45] LABS: Anion Gap 12.0 mmol/L (3-11); Blood Urea Nitrogen 24.0 mg/dL (8-24); CO2, Blood 17.0 mmol/L (21-32); Calcium, Blood 7.8 mg/dL (8.5-10.1); Chloride, Blood 112.0 mmol/L (98-108); Creatinine, Blood 1.44 mg/dL (0.60-1.20); Glucose, Blood 97.0 mg/dL (70-99); Potassium, Blood 3.4 mmol/L (3.5-5.5); Sodium, Blood 138.0 mmol/L (136-145)
[2025-07-03] MEDS ORDERED: Dose Adjust by Pharmacy XX STA (04:38)
--- NOTE | 2025-07-03 04:43 | NUR ---
SHIFT SUMMARY - PT A/OX4, COOPERATIVE WITH CARE, USING CALL LIGHT APPROPRIATELY. DENIES PAIN.PT HAS RIGHT SIDE DEFICITS AT BASELINE AND RIGHT SIDED FACIAL DROOP. ON CONTINUOUS CARDIAC TELEMETRY. SR TO ST, HR 90'S-100'S. DENIES CHEST PAIN/PRESSURE. ON RA, SATS ABOVE 90%, USING CPAP AT NIGHT WHILE SLEEPING. ON BEDREST AT THIS TIME DUE TO WEAKNESS. MONTERROSO CATHETER IN PLACE DUE TO RETENTION. DRAINING TO GRAVITY. URINE PRESENTS WITH SHILPA RED BLOOD. AWARE. ON HEPARIN GTT AT 15U/KG/HR. NO ACUTE EVENTS OVERNIGHT.
--- NOTE | 2025-07-03 19:49 | NUR ---
DAY SHIFT SHIFT SUMMARY PATIENT IS ALERT AND ORIENTED X4, ABLE TO FOLLOW COMMANDS AND MAKE NEEDS KNOWN. PRESENCE OF RIGHT FACIAL DROOP NOTED AND CONSISTENT WITH PATIENT'S BASELINE. PATIENT HAS BEEN SLIGHTLY TACHYCARDIC AND TACHYPNEIC THIS SHIFT, DENIES PRESENCE OF CHEST PAIN/PRESSURE OR SHORTNESS OF BREATH. SPO2 >90% ON RA. PATIENT DENIES N/V/D. MONTERROSO CATHETER INTACT, PATENT, AND DRAINING TO GRAVITY, RED TINGED URINE PRESENT. PATIENT IS A 1-2 PERSON ASSIST WITH A FWW, PATIENT USES A FWW AT BASELINE. PATIENT IN BED, BED IN LOWEST POSITION, CALL LIGHT WITHIN REACH.
--- NOTE | 2025-07-03 20:16 | NUR ---
TRANSFER OF CARE ASSUMED CARE OF PT AT 1930. PT ALERT, ORIETNED X4. HE DOES HAVE A RIGHT FACIAL DROOP, HX OF TBI. SOME WEAKNESS TO THE RIGHT EXTREMITIES. TELE SHOWING SINUS TACH 90'S-100'S. HE DENIED ANY CP/PRESSURE. SPO2 >92% ON RA, PT REPORTS SOB WITH EXERTION. PT HAS MONTERROSO IN PLACE, DRAINING TO GRAVITY, ERMELINDA. PT SITTING UP IN BED AT THIS TIME. PT MEDICAL WITH TELE STATUS. PT HAS ROOM AVIALABLE UPSTAIRS. REPORT GIVEN TO MEDICAL FLOOR RN.
[2025-07-03] MEDS ORDERED: Insulin Glargine,Hum.Rec.Anlog 100 UNIT/ML 3MLSYR SC SCH (21:00)
[2025-07-03] MEDS ORDERED: NS 250 ML IV PRN (21:15)
[2025-07-04 04:00] VITALS: BP 168/104
[2025-07-04 07:08] LABS: BASOPHILS ABSOLUTE AUTO 0.04 K/mm3 (0.00-0.23); BASOPHILS PERCENT AUTO 0 % (0-2); EOSINOPHILS ABSOLUTE AUTO 0.28 K/mm3 (0.00-0.68); EOSINOPHILS PERCENT AUTO 3 % (0-6); Hematocrit 37.5 % (37.0-53.0); Hemoglobin 13.0 g/dL (13.5-17.5); IMMATURE GRAN ABSOLUTE AUTO 0.07 K/mm3 (0.00-0.10); IMMATURE GRAN PERCENT AUTO 1 % (0-1); LYMPHOCYTES ABSOLUTE AUTO 1.54 K/mm3 (0.84-5.20); LYMPHOCYTES PERCENT AUTO 16 % (21-46); MONOCYTES ABSOLUTE AUTO 0.90 K/mm3 (0.16-1.47); MONOCYTES PERCENT AUTO 9 % (4-13); Mean Corpuscular HGB Conc 34.7 g/dL (31.5-36.5); Mean Corpuscular Volume 87 fL (80-100); NEUTROPHILS ABSOLUTE AUTO 6.93 K/mm3 (1.96-9.15); NEUTROPHILS PERCENT AUTO 71 % (41-73); NRBC ABSOLUTE 0.00 K/mm3 (0.00-0.02); NRBC Auto 0.0 /100 WBC (0.0-0.2); Platelet Count 183 K/mm3 (150-400); RDW Coefficient Variation 14.0 % (11.7-14.2); RDW Standard Deviation 45.0 fL (35.1-46.3)
[2025-07-04 07:20] VITALS: BP 154/93
[2025-07-04 07:30] LABS: Anion Gap 10.0 mmol/L (3-11); Blood Urea Nitrogen 22.0 mg/dL (8-24); CO2, Blood 21.0 mmol/L (21-32); Calcium, Blood 8.6 mg/dL (8.5-10.1); Chloride, Blood 109.0 mmol/L (98-108); Creatinine, Blood 1.26 mg/dL (0.60-1.20); Glucose, Blood 116.0 mg/dL (70-99); Potassium, Blood 3.6 mmol/L (3.5-5.5); Sodium, Blood 136.0 mmol/L (136-145)
[2025-07-04] MEDS ORDERED: Insulin Glargine,Hum.Rec.Anlog 100 UNIT/ML 3MLSYR SC SCH (09:00)
[2025-07-04 11:27] VITALS: BP 137/73
[2025-07-04] MEDS ORDERED: Polyethylene Glycol 3350 17 gm PO SCH (11:41)
[2025-07-04 15:29] VITALS: BP 118/77
--- NOTE | 2025-07-04 18:17 | NUR ---
NO ACUTE CHANGES PT AO AND COOPERATIVE OF CARE. PT IS A ONE PERSON WITH GAITBELT TRANSFER AND WAS UP FOR LUNCH TOLERATED WELL. PT'S HR DOES INCREASE WITH EXCERTION INTO THE 120s THEN BACK DOWN. PT CURRENTLY RA SATING IN THE 90s. NO DISTRESS NOTED AND CALL LIGHT WITHIN REACH. PT TREATED FOR CONSTIPATION PER EMAR WHICH HAS NOT BEEN EFFECTIVE. WILL CONTINUE TO MONITOR.
[2025-07-04 20:21] VITALS: BP 139/76
[2025-07-04 23:52] VITALS: BP 139/77
[2025-07-05 04:50] VITALS: BP 151/122
[2025-07-05 05:51] LABS: BASOPHILS ABSOLUTE AUTO 0.08 K/mm3 (0.00-0.23); BASOPHILS PERCENT AUTO 1 % (0-2); EOSINOPHILS ABSOLUTE AUTO 0.38 K/mm3 (0.00-0.68); EOSINOPHILS PERCENT AUTO 4 % (0-6); Hematocrit 35.1 % (37.0-53.0); Hemoglobin 12.2 g/dL (13.5-17.5); IMMATURE GRAN ABSOLUTE AUTO 0.07 K/mm3 (0.00-0.10); IMMATURE GRAN PERCENT AUTO 1 % (0-1); LYMPHOCYTES ABSOLUTE AUTO 2.03 K/mm3 (0.84-5.20); LYMPHOCYTES PERCENT AUTO 19 % (21-46); MONOCYTES ABSOLUTE AUTO 0.91 K/mm3 (0.16-1.47); MONOCYTES PERCENT AUTO 9 % (4-13); Mean Corpuscular HGB Conc 34.8 g/dL (31.5-36.5); Mean Corpuscular Volume 87 fL (80-100); NEUTROPHILS ABSOLUTE AUTO 7.02 K/mm3 (1.96-9.15); NEUTROPHILS PERCENT AUTO 67 % (41-73); NRBC ABSOLUTE 0.00 K/mm3 (0.00-0.02); NRBC Auto 0.0 /100 WBC (0.0-0.2); Platelet Count 198 K/mm3 (150-400); RDW Coefficient Variation 14.0 % (11.7-14.2); RDW Standard Deviation 44.3 fL (35.1-46.3)
[2025-07-05 06:19] LABS: Anion Gap 10.0 mmol/L (3-11); Blood Urea Nitrogen 21.0 mg/dL (8-24); CO2, Blood 20.0 mmol/L (21-32); Calcium, Blood 8.4 mg/dL (8.5-10.1); Chloride, Blood 110.0 mmol/L (98-108); Creatinine, Blood 1.24 mg/dL (0.60-1.20); Glucose, Blood 148.0 mg/dL (70-99); Potassium, Blood 3.4 mmol/L (3.5-5.5); Sodium, Blood 137.0 mmol/L (136-145)
[2025-07-05 07:25] VITALS: BP 125/73
[2025-07-05] MEDS ORDERED: Potassium Chloride 10 Meq Tablet SA PO ONE (08:10)
[2025-07-05] MEDS ORDERED: Polyethylene Glycol 3350 17 gm PO SCH (09:00)
[2025-07-05 11:20] VITALS: BP 120/71
[2025-07-05 13:18] LABS: Alanine Aminotransfer (ALT/SGP 42 U/L (12-78); Albumin, Blood 2.6 g/dL (3.4-5.0); Albumin/Globulin Ratio 0.7 (0.8-1.8); Aspartate Aminotrans (AST/SGOT 30 U/L (12-37); Bilirubin, Direct <0.1 mg/dL (0.0-0.3); Bilirubin, Indirect Unable to Calculate mg/dL (0.1-0.7); Bilirubin, Total 0.4 mg/dL (0.1-1.0); Globulin, Blood 3.8 g/dL (2.2-4.0); Total Protein, Blood 6.4 g/dL (6.4-8.2)
[2025-07-05 16:01] VITALS: BP 122/70
--- NOTE | 2025-07-05 16:08 | NUR ---
NO ACUTE CHANGES. PT AOX4 AND COOPERATIVE OF CARE. PT WAS UP FOR LUNCH AND NOW IS BACK TO BED. WHEN PT TRANSFERS HR GOES INTO THE 120s THEN BACK DOWN. PT USES CALL LIGHT APPROPRIATELY NO DISTRESS NOTED. WILL CONTINUE TO MONITOR.
[2025-07-05 20:00] VITALS: BP 106/68
[2025-07-05] MEDS ORDERED: Lactobacil 2-S.Thermo-Bifido 1 1 Cap PO SCH (21:00)
[2025-07-06 00:48] VITALS: BP 147/94
[2025-07-06 04:31] VITALS: BP 144/81
--- NOTE | 2025-07-06 04:44 | NUR ---
SHIFT SUMMARY 65 YR M ADMITTED ON 07/02/25. FULL CODE. NO ACUTE CHANGES THIS SHIFT. PT IS PLEASANT AND COOPERATIVE WITH CARE. NO C/O PAIN OR DISCOMFORT THIS SHIFT. MONTERROSO IS PATENT AND DRAINING WELL. AFTER EVENING MEDS PT WENT TO SLEEP AND APPEARS TO HAVE RESTED COMFORTABLY THROUGHOUT THE NIGHT. BED IS IN LOW POSITION AND CALL LIGHT IN REACH.
[2025-07-06 06:43] LABS: BASOPHILS ABSOLUTE AUTO 0.08 K/mm3 (0.00-0.23); BASOPHILS PERCENT AUTO 1 % (0-2); EOSINOPHILS ABSOLUTE AUTO 0.50 K/mm3 (0.00-0.68); EOSINOPHILS PERCENT AUTO 5 % (0-6); Hematocrit 34.5 % (37.0-53.0); Hemoglobin 11.8 g/dL (13.5-17.5); IMMATURE GRAN ABSOLUTE AUTO 0.19 K/mm3 (0.00-0.10); IMMATURE GRAN PERCENT AUTO 2 % (0-1); LYMPHOCYTES ABSOLUTE AUTO 2.47 K/mm3 (0.84-5.20); LYMPHOCYTES PERCENT AUTO 24 % (21-46); MONOCYTES ABSOLUTE AUTO 0.77 K/mm3 (0.16-1.47); MONOCYTES PERCENT AUTO 8 % (4-13); Mean Corpuscular HGB Conc 34.2 g/dL (31.5-36.5); Mean Corpuscular Volume 87 fL (80-100); NEUTROPHILS ABSOLUTE AUTO 6.19 K/mm3 (1.96-9.15); NEUTROPHILS PERCENT AUTO 61 % (41-73); NRBC ABSOLUTE 0.00 K/mm3 (0.00-0.02); NRBC Auto 0.0 /100 WBC (0.0-0.2); Platelet Count 225 K/mm3 (150-400); RDW Coefficient Variation 14.0 % (11.7-14.2); RDW Standard Deviation 44.9 fL (35.1-46.3)
[2025-07-06 07:13] LABS: Alanine Aminotransfer (ALT/SGP 44.0 U/L (12-78); Albumin, Blood 2.6 g/dL (3.4-5.0); Albumin/Globulin Ratio 0.7 (0.8-1.8); Anion Gap 9.0 mmol/L (3-11); Aspartate Aminotrans (AST/SGOT 23.0 U/L (12-37); Bilirubin, Total 0.4 mg/dL (0.1-1.0); Blood Urea Nitrogen 24.0 mg/dL (8-24); CO2, Blood 21.0 mmol/L (21-32); Calcium, Blood 8.6 mg/dL (8.5-10.1); Chloride, Blood 112.0 mmol/L (98-108); Creatinine, Blood 1.33 mg/dL (0.60-1.20); Globulin, Blood 3.7 g/dL (2.2-4.0); Glucose, Blood 148.0 mg/dL (70-99); Potassium, Blood 3.7 mmol/L (3.5-5.5); Sodium, Blood 138.0 mmol/L (136-145); Total Protein, Blood 6.3 g/dL (6.4-8.2)
[2025-07-06 07:40] VITALS: BP 138/90
[2025-07-06 11:44] VITALS: BP 103/64
[2025-07-06 16:20] VITALS: BP 116/71
--- NOTE | 2025-07-06 17:26 | NUR ---
PATIENT COOPERATIVE WITH CARE TODAY, HAS NO CONCERNS ASIDE FROM WHEN DISCHARGE WILL HAPPEN. PATIENT ABLE TO EXPRESS NEEDS FOR CARE AND USES CALL LIGHT APPROPRIATLEY. ASSISTED WITH CARES THIS AM.CALL LIGHT WITHIN REACH. NO CONCERNS OR QUESTIONS AT THIS TIME.
[2025-07-06 20:38] VITALS: BP 105/76
[2025-07-07 00:33] VITALS: BP 155/93
[2025-07-07 04:36] VITALS: BP 129/73
--- NOTE | 2025-07-07 05:28 | NUR ---
SHIFT SUMMARY 65 YR M ADMITTED ON 07/02/25. FULL CODE. NO ACUTE CHANGES THIS SHIFT. PT REQUESTED TO BE SHAVED AND STATED HE FELT MUCH BETTER AFTERWARD. HE APPEARS TO BE IN GOOD SPIRITWS AND LIKE TO JOKE WITH STAFF. NO C/O CHEST PAIN OR PRESSURE THIS SHIFT. HE APPEARS TO HAVE RESTED COMFORTABLY THROUGHOUT THE NIGHT. ABLE TO MAKE HIS NEEDS KNOWN. BED IN LOW POSITION AND CALL LIGHT IN REACH.
[2025-07-07 06:44] LABS: BASOPHILS ABSOLUTE AUTO 0.09 K/mm3 (0.00-0.23); BASOPHILS PERCENT AUTO 1 % (0-2); EOSINOPHILS ABSOLUTE AUTO 0.50 K/mm3 (0.00-0.68); EOSINOPHILS PERCENT AUTO 4 % (0-6); Hematocrit 37.5 % (37.0-53.0); Hemoglobin 12.5 g/dL (13.5-17.5); IMMATURE GRAN ABSOLUTE AUTO 0.37 K/mm3 (0.00-0.10); IMMATURE GRAN PERCENT AUTO 3 % (0-1); LYMPHOCYTES ABSOLUTE AUTO 2.78 K/mm3 (0.84-5.20); LYMPHOCYTES PERCENT AUTO 24 % (21-46); MONOCYTES ABSOLUTE AUTO 0.81 K/mm3 (0.16-1.47); MONOCYTES PERCENT AUTO 7 % (4-13); Mean Corpuscular HGB Conc 33.3 g/dL (31.5-36.5); Mean Corpuscular Volume 88 fL (80-100); NEUTROPHILS ABSOLUTE AUTO 7.01 K/mm3 (1.96-9.15); NEUTROPHILS PERCENT AUTO 61 % (41-73); NRBC ABSOLUTE 0.00 K/mm3 (0.00-0.02); NRBC Auto 0.0 /100 WBC (0.0-0.2); Platelet Count 276 K/mm3 (150-400); RDW Coefficient Variation 13.9 % (11.7-14.2); RDW Standard Deviation 44.9 fL (35.1-46.3)
[2025-07-07 07:14] LABS: Alanine Aminotransfer (ALT/SGP 43.0 U/L (12-78); Albumin, Blood 2.8 g/dL (3.4-5.0); Albumin/Globulin Ratio 0.7 (0.8-1.8); Anion Gap 11.0 mmol/L (3-11); Aspartate Aminotrans (AST/SGOT 23.0 U/L (12-37); Bilirubin, Total 0.4 mg/dL (0.1-1.0); Blood Urea Nitrogen 24.0 mg/dL (8-24); CO2, Blood 22.0 mmol/L (21-32); Calcium, Blood 8.8 mg/dL (8.5-10.1); Chloride, Blood 108.0 mmol/L (98-108); Creatinine, Blood 1.36 mg/dL (0.60-1.20); Globulin, Blood 4.0 g/dL (2.2-4.0); Glucose, Blood 146.0 mg/dL (70-99); Potassium, Blood 3.7 mmol/L (3.5-5.5); Sodium, Blood 137.0 mmol/L (136-145); Total Protein, Blood 6.8 g/dL (6.4-8.2)
[2025-07-07 07:15] VITALS: BP 122/85
[2025-07-07 12:59] VITALS: BP 130/81
[2025-07-07 13:57] LABS: CORONAVIRUS COVID-19 AG Negative (NEGATIVE)
[2025-07-07 16:20] VITALS: BP 121/77
--- NOTE | 2025-07-07 17:39 | NUR ---
SHIFT SUMMARY PT AOX4, SLOW TO RESPOND AT TIMES. UP TO THE CHAIR OR BSC WITH 2P ASSIST, GB AND FWW. MONTERROSO IN PLACE AND DRAINING. CALLS AND MAKES HIS NEEDS KNOWN. NO ACUTE COMPLAINTS, BOWEL CARE MEDS GIVEN PER THE EMAR. REPOSITIONS SELF IN BED. PLAN IS FOR PT TO DC TO [facility] TOMORROW IN THE AM. CALL LIGHT WITHIN REACH, BED LOCKED AND IN THE LOWEST POSITION. WILL REPORT TO ONCOMING NURSE.
[2025-07-07 20:01] VITALS: BP 119/66
[2025-07-08 01:04] VITALS: BP 83/63
[2025-07-08 04:25] VITALS: BP 111/68
--- NOTE | 2025-07-08 04:33 | NUR ---
SHIFT SUMMARY 65 YR M ADMITTED ON 07/02/25. FULL CODE. NO ACUTE CHANGES THIS SHIFT. PT WAS UP TO BSC AND HAD A BM THIS SHIFT. HE IS A VERY HEAVY 2 PERSON ASSIST. PT IS ABLE TO MAKE HIS NEEDS KNOWN. BED IN LOW POSITION AND CALL LIGHT IN REACH.
[2025-07-08 07:50] VITALS: BP 111/88
--- NOTE | 2025-07-08 10:25 | NUR ---
DISCHARGE NO ACUTE CHANGES TODAY, REPORT CALLED TO SONNY @ [facility], IV, TELE, AND MONTERROSO CATH REMOVED, TRANSPORTED VIA WHEELCHAIR @ 9200, ALL BELONGINGS SENT WITH TRANSPORTER.
== END 2025-07-08 09:53 | DRG 871 ==
LOC: ER 19:50 → ERHOLD 19:51 → PCU 19:51 → MEDS 07-01 15:12 → PCU 07-01 17:33 → MEDS 07-02 15:02 → PCU 07-02 15:02 → MEDS 07-03 20:58
PROVIDERS: Emergency Medicine; Family Medicine; Internal Medicine; Nurse Practitioner Acute Care; Pharmacist; ADMIT Student in an Organized Health Care Education/Training Program
PROC: 0T9B70Z Drainage of Bladder with Drainage Device, Via Natural or Artificial Opening (ICD-10-PCS; principal; 2025-07-01)
PROC: 5A09357 Assistance with Respiratory Ventilation, Less than 24 Consecutive Hours, Continuous Positive Airway Pressure (ICD-10-PCS; 2025-07-01)
PROC: 3E03329 Introduction of Other Anti-infective into Peripheral Vein, Percutaneous Approach (ICD-10-PCS; 2025-07-01)
DX: A41.9 Sepsis, unspecified organism (principal); I21.A1 Myocardial infarction type 2; J18.9 Pneumonia, unspecified organism; J69.0 Pneumonitis due to inhalation of food and vomit; I13.0 Hypertensive heart and chronic kidney disease with heart failure and stage 1 through stage 4 chronic kidney disease, or unspecified chronic kidney disease; N13.30 Unspecified hydronephrosis; I50.22 Chronic systolic (congestive) heart failure; N17.9 Acute kidney failure, unspecified; I42.9 Cardiomyopathy, unspecified; J44.0 Chronic obstructive pulmonary disease with (acute) lower respiratory infection; E87.6 Hypokalemia; E86.0 Dehydration; I25.10 Atherosclerotic heart disease of native coronary artery without angina pectoris; F41.9 Anxiety disorder, unspecified; I25.2 Old myocardial infarction; G47.33 Obstructive sleep apnea (adult) (pediatric); N18.30 Chronic kidney disease, stage 3 unspecified; R54 Age-related physical debility; R00.0 Tachycardia, unspecified; N40.1 Benign prostatic hyperplasia with lower urinary tract symptoms; R33.8 Other retention of urine; E11.22 Type 2 diabetes mellitus with diabetic chronic kidney disease; F10.21 Alcohol dependence, in remission; F32.A Depression, unspecified; N32.0 Bladder-neck obstruction; E66.812 Obesity, class 2; R31.9 Hematuria, unspecified; R55 Syncope and collapse; T50.995A Adverse effect of other drugs, medicaments and biological substances, initial encounter; D63.1 Anemia in chronic kidney disease; E83.51 Hypocalcemia; Z68.37 Body mass index [BMI] 37.0-37.9, adult; Z95.1 Presence of aortocoronary bypass graft; Z87.01 Personal history of pneumonia (recurrent); Z87.891 Personal history of nicotine dependence; Z87.820 Personal history of traumatic brain injury; Z79.4 Long term (current) use of insulin; Z79.02 Long term (current) use of antithrombotics/antiplatelets; Z79.84 Long term (current) use of oral hypoglycemic drugs; Z79.85 Long-term (current) use of injectable non-insulin antidiabetic drugs; Z79.899 Other long term (current) drug therapy; Z88.1 Allergy status to other antibiotic agents; Z88.8 Allergy status to other drugs, medicaments and biological substances
CPT/HCPCS: 0202U; 36415; 51701; 51702; 70450; 71045; 71260; 74176; 80048; 80053; 80076; 80320; 81001; 82140; 82803; 82947; 83605; 83735; 83880; 84145; 84439; 84443; 84484; 85025; 85027; 85520; 85610; 85730; 87040; 87426-QW; 87428-QW; 93005; 93010; 94660; 94762; 96361; 96365; 96366; 96367; 96375; 96376; 97110; 97116; 97162; 97165; 97530; 97535; 99285-25; A6590; A9270; C8929; G0378; J0456; J0696; J1644; J2060; J3480; J7030; J7050; J7120; P9047; Q9957; Q9967